=== PATIENT | male | born 1945 | race Caucasian/White ===

== ENCOUNTER 2019-03-14 15:20 | Inpatient (IN) | payer MEDICARE, OTHER ==
[2019-03-14 16:47] LABS: Hematocrit 34 % (42-52); Hemoglobin 10.3 g/dL (14.0-18.0); Mean Corpuscular HGB Conc 31 g/dL (31-36); Mean Corpuscular Hemoglobin 23 pg (27-31); Mean Corpuscular Volume 74 fL (80-94); Mean Platelet Volume 7.7 fL (7.4-10.4); Platelet Count 351 10^3/uL (150-450); Red Blood Count 4.55 10^6 /uL (4.18-5.48); Red Cell Distribution Width 18 % (10.5-15); White Blood Count 9.5 10^3/uL (3.5-10.8)
--- NOTE | 2019-03-14 16:51 | ED ---
Respiratory - HPI Summary HPI Summary: This patient is a 73 year old M presenting to [facility] with a chief complaint of SOB since 2 months ago. The SOB is worse when lying down, such that the pt has to sleep on his side. Symptoms also aggravated by exertion. Per the triage note , he was seen by [facility] today and told that he had fluid in his lungs and sent here. Patient reports swelling in LE bilaterally. Patient denies coughing, CP, and chest tightness. He has never used water pills before and is not on oxygen at home. PCP is Dr. Orosco. - History of Current Complaint Chief Complaint: EDShortnessOfBreath Stated Complaint: FLUID IN HIS LUNGS PER PT Time Seen by Provider: 03/14/19 16:18 Hx Obtained From: Patient Onset/Duration: Lasting Weeks, Still Present Pain Intensity: 0 Character: Dyspnea at Rest, Dyspnea on Exertion, Orthopnea Aggravating Factor(s): Exertion Associated Signs and Symptoms: SOB, Chest Pain - Denies, Chest Pain with Cough - Denies, Chest Pain Unrelated to Cough - Denies, Edema - LE bilat, Dyspnea - Allergy/Home Medications Allergies/Adverse Reactions: Allergies Allergy/AdvReac Type Severity Reaction Status Date / Time No Known Allergies Allergy Verified 03/08/16 16:58 Home Medications: Home Medications Cholecalciferol (Vitamin D3) [Vitamin D3] 1,000 unit PO DAILY 03/14/19 [History Confirmed 03/14/19] Digoxin TAB* [Lanoxin TAB*] 0.125 mg PO DAILY 03/14/19 [History Confirmed ] PMH/Surg Hx/FS Hx/Imm Hx Endocrine/Hematology History: Denies: Hx Diabetes Cardiovascular History: Reports: Hx Atrial Fibrillation, Hx Hypertension Denies: Hx Cardiac Arrest - Surgical History Surgery Procedure, Year, and Place: APPENDECTOMY CHILD Infectious Disease History: No Infectious Disease History: Denies: Traveled Outside the [place] in Last 30 Days - Family History Known Family History: Positive: Cardiac Disease, Diabetes - Social History Alcohol Use: None Substance Use Type: Reports: Marijuana Smoking Status (MU): Former Smoker Review of Systems Negative: Fever, Chills Negative: Erythema Negative: Sore Throat Negative: Chest Pain Positive: Shortness Of Breath. Negative: Cough Negative: Abdominal Pain, Vomiting, Nausea Negative: dysuria, hematuria Positive: Edema - LE bilaterally. Negative: Myalgia Negative: Rash Neurological: Other - Denies dizziness All Other Systems Reviewed And Are Negative: Yes Physical Exam - Summary Physical Exam Summary: Constitutional: Well-developed, Well-nourished, Alert. (-) Distressed Skin: Warm, Dry HENT: Normocephalic; Atraumatic Eyes: Conjunctiva normal Neck: Musculoskeletal ROM normal neck. (-) JVD, (-) Stridor, (-) Tracheal deviation Cardio: Rhythm regular, rate normal, Heart sounds normal; Intact distal pulses; The pedal pulses are 2+ and symmetric. Radial pulses are 2+ and symmetric. (-) Murmur Pulmonary/Chest wall: Basilar crackling in lungs on right side. (-) Respiratory distress, (-) Wheezes, (-) Rales Abd: Soft, (-) tenderness, (-) Distension, (-) Guarding, (-) Rebound Musculoskeletal: Bilaterally 1+ pitting edema to LE with weeping on the right side Lymph: (-) Cervical adenopathy Neuro: Alert, Oriented x3 Psych: Mood and affect Normal Triage Information Reviewed: Yes Vital Signs On Initial Exam: Initial Vitals Temp Pulse Resp BP Pulse Ox 98.1 F 64 20 102/71 92 03/14/19 15:32 03/14/19 15:32 03/14/19 15:32 03/14/19 15:32 03/14/19 15:32 Vital Signs Reviewed: Yes Diagnostics - Vital Signs Vital Signs Temp Pulse Resp BP Pulse Ox 03/14/19 16:01 73 15 87 03/14/19 15:32 98.1 F 64 20 102/71 92 - Laboratory Result Diagrams: 03/14/19 16:38 03/14/19 16:38 Lab Statement: Any lab studies that have been ordered have been reviewed, and results considered in the medical decision making process. - Radiology Chest X-Ray Radiology Interpretation Completed By: Radiologist Summary of Radiographic Findings: 16:52 - CARDIOMEGALY WITH RIGHT PLEURAL EFFUSION. RIGHT BASILAR ATELECTASIS IS NOTED. ED Physician has reviewed this imaging report. - EKG 16:37 Cardiac Rate: NL - 69 BPM EKG Rhythm: Sinus Rhythm Summary of EKG Findings: No STEMI Disposition - Diagnoses Provider Diagnoses: CHF exacerbation - Physician Notifications Discussed Care Of Patient With: Edda Soliz - Hospitalist Time Discussed With Above Provider: 18:00 Instructed by Provider To: Admit As Inpatient Discharge - Sign-Out/Discharge Documenting (check all that apply): Patient Departure - Admit Patient Received Moderate/Deep Sedation with Procedure: No - Discharge Plan Condition: Stable Disposition: ADMITTED TO [facility] Referrals: Randy Orosco DO [Primary Care Provider] - - Attestation Statements Document Initiated by Scribe: Yes Documenting Scribe: John Miles Provider For Whom Scribe is Documenting (Include Credential): Layton Gay MD Scribe Attestation: John Garcia, scribed for Layton Gay MD on 03/14/19 at 1853. Status of Scribe Document: Ready
[2019-03-14] MEDS ORDERED: Nitro 2% OINT* (Nitroglycerin) 1 INCH/PAK PAK TOPICAL ONE (16:56)
[2019-03-14] MEDS ORDERED: Furosemide IV* 10 MG/ML VIAL (40 MG) IV SLOW PU ONE (16:56)
[2019-03-14 16:57] LABS: Activated Partial Thrombo Time 45.6 seconds (26.0-36.3); INR 1.53 (0.82-1.09)
[2019-03-14 17:04] LABS: ALT 16 U/L (7-52); AST 22 U/L (13-39); Albumin 3.8 g/dL (3.2-5.2); Albumin/Globulin Ratio 1.1 (1-3); Alkaline Phosphatase 130 U/L (34-104); Anion Gap 6 mmol/L (2-11); BUN/Creatinine Ratio 24.2 (8-20); Blood Urea Nitrogen 32 mg/dL (6-24); CO2 Carbon Dioxide 31 mmol/L (22-32); Calcium 9.5 mg/dL (8.6-10.3); Chloride 104 mmol/L (101-111); EGFR African American 64.2 (>60); Globulin 3.5 g/dL (2-4); Glucose 128 mg/dL (70-100); Potassium 4.6 mmol/L (3.5-5.0); Sodium 141 mmol/L (135-145); Total Protein 7.3 g/dL (6.4-8.9)
[2019-03-14 17:07] LABS: Troponin I 0.04 ng/mL (<0.04)
[2019-03-14 17:08] LABS: ABS Basophils 0.1 10^3/ul (0-0.2); ABS Eosinophils 0.1 10^3/ul (0-0.6); ABS Lymphocytes 1.1 10^3/ul (1.0-4.8); ABS Neutrophils 7.2 10^3/ul (1.5-7.7); Eosinophil % 0.9 %; Lymphocyte % 11.9 %
[2019-03-14] MEDS ORDERED: Acetaminophen TAB* 325 MG PO PRN (19:09)
[2019-03-14] MEDS: CMCS:Dabigatran CAP(NF) 150 MG CAP PO SCH (22:14)
--- NOTE | 2019-03-15 03:22 | HP ---
CC: Dr. Orosco * HISTORY AND PHYSICAL: DATE OF ADMISSION: 03/14/19 PROVIDER: Jessica Plata NP. PRIMARY CARE PROVIDER: Dr. Orosco. ATTENDING PHYSICIAN WHILE IN THE HOSPITAL: Dr. Milagros Goss * (dictated by Jessica Plata NP). CHIEF COMPLAINT: Shortness of breath. HISTORY OF PRESENT ILLNESS: Mr. Valerio is a 73-year-old male with a past medical history significant for atrial fibrillation, hypertension, and hyperlipidemia who presented to the emergency room with complaints of shortness of breath. The patient reports that he has had progressively worsening shortness of breath for the past 5 months. He does report that this week his shortness of breath has been at its worst. The patient denies any significant weight gain. He does report some lower extremity edema with weeping from his lower extremities. The patient does have chronic ulcerations and is followed by [facility] for treatment of the ulcers on his lower legs, which he states have been improving. He does have some mild erythema to bilateral lower extremities, but this is not warm or painful to touch and the patient is afebrile. The patient reports that he has been able to lie down and sleep on his side, but is unable to sleep on his back due to increased shortness of breath. He does report that over the past week, he has been sleeping sitting up due to his shortness of breath. Due to the progressive shortness of breath, the patient presented to the emergency room for further evaluation. The patient was seen by [facility] today and told to come to the emergency room for further evaluation. While in the emergency room, the patient had routine lab work drawn. He was found to have a troponin of 0.04, elevated BUN and creatinine of 32 and 1.32; which is above his baseline, lactic acid of 2.2, and a BNP of 319. He had a chest x-ray, which showed cardiomegaly with right pleural effusion, right basilar atelectasis. Due to the concern of congestive heart failure, we were asked to see and evaluate the patient for admission. PAST MEDICAL HISTORY: 1. Atrial fibrillation. 2. Hypertension. 3. Hyperlipidemia. PAST SURGICAL HISTORY: History of appendectomy. MEDICATIONS: Home medications include: 1. Pradaxa 150 mg p.o. b.i.d. 2. Metoprolol 200 mg p.o. daily. 3. Lisinopril 10 mg p.o. daily. 4. Simvastatin 40 mg p.o. daily. 5. Digoxin 0.125 mg p.o. daily. 6. Vitamin D 1000 units p.o. daily. ALLERGIES: No known drug allergies. SOCIAL HISTORY: The patient reports that he quit smoking in 1984. Prior to that, he smoked a pack a day for approximately 10 years. He does report rare alcohol use. He does report that he smokes marijuana 2 times a week. He is single. He lives alone. His son, Francesco, is his surrogate decision maker in the event he is unable to make his own decisions. He is a full code. REVIEW OF SYSTEMS: He denies any fever or unintended weight loss. He denies any chest pain. He does report edema. He denies any cough or hemoptysis. He does report shortness of breath worse with exertion and lying flat. He denies nausea, vomiting, diarrhea, abdominal pain, gross hematuria, dysuria, focal weakness, or sensory loss. He denies any visual complaints. He denies any dysphagia, arthralgias, or myalgias. He does report ulcers to bilateral lower extremities; he is followed by [facility] for that. He does report that they have improved. PHYSICAL EXAMINATION GENERAL: At this time, Mr. Valerio is a 73-year-old male. He is alert and oriented, sitting on the stretcher in the emergency room. He does not appear to be in any acute distress. VITAL SIGNS: Blood pressure is 104/60, heart rate is 73, respirations are 18, O2 saturation is 96%, temperature 98.1. HEENT: Head is atraumatic, normocephalic. Eyes: EOMs are intact. Sclerae anicteric and not pale. Oral mucosa appeared to be moist. NECK: Supple. LUNGS: Diminished bilaterally. There are no wheezes or rales. CARDIAC: S1, S2. Irregular rate and rhythm. No murmurs, rubs, or gallops. ABDOMEN: Obese, soft, nontender. Bowel sounds are present x4. EXTREMITIES: He can move all 4 extremities. Pedal pulses are +1. His bilateral lower extremities do have mild erythema with ulcerations noted to both lower extremities. They are not hot to touch. NEUROLOGIC: He is awake, alert, oriented x3. His speech is clear. Thought process is intact. There are no gross focal deficits. LABORATORY DATA AND DIAGNOSTIC STUDIES: WBCs are 9.5, RBCs 4.55, hemoglobin 10.3, hematocrit of 34, platelet count is 351. INR is 1.53, aPTT was 45.6. Sodium 141, potassium 4.6, chloride 104, carbon dioxide 31, anion gap 6, BUN was 32, creatinine 1.32, glucose was 128, lactic acid was 2.2, calcium 9.5. ASTs were 22, ALTs were 16, alkaline phosphatase was 130. Troponin was 0.04. BNP was 319. Chest x-ray: Cardiomegaly with right pleural effusion, right basilar atelectasis is noted. He had an electrocardiogram that showed atrial fibrillation at a rate of 69. ASSESSMENT AND PLAN: Mr. Valerio is a 73-year-old male with a past medical history significant for atrial fibrillation; on Pradaxa, hypertension, hyperlipidemia who presented to the emergency room with progressively shortness of breath x5 months. He will be admitted inpatient for: 1. Shortness of breath. I suspect his shortness of breath is related to diastolic congestive heart failure. The patient was given 40 mg of Lasix in the emergency room. I will repeat Lasix 40 mg IV in the a.m. We will monitor him on telemetry. I will get a transthoracic echocardiogram. The patient did have an EKG in the emergency room. It shows atrial fibrillation, but no acute ST elevations. The patient does have an elevated troponin. I suspect it is related to demand ischemia from his congestive heart failure. The patient will be placed on strict Is and Os and daily weights. 2. Atrial fibrillation. The patient will continue on digoxin 0.125 mg p.o. daily, metoprolol 200 mg p.o. daily, and Pradaxa 150 mg p.o. b.i.d. 3. Hyperlipidemia. He will continue on atorvastatin 20 mg p.o. daily. 4. Hypertension. He will continue his metoprolol as previously prescribed. I will hold his lisinopril as the patient will be receiving digoxin and has a soft blood pressure with systolic blood pressure in the 100s. 5. Elevated troponin. I suspect his elevated troponin is related to demand ischemia from his congestive heart failure. I will continue to trend his troponins and get a transthoracic echocardiogram. Should his troponins elevate , we can consider consultation to cardiology. 6. FEN. The patient can have a heart-healthy, decaf-okay diet. 7. Code status. He is a full code. 8. DVT prophylaxis. The patient is on Pradaxa. TIME SPENT: Time spent on this admission was 60 minutes, greater than half that time was spent at the bedside, reviewing the events leading thus far to his hospitalization, performing my physical exam, and reviewing my plan of care. I have discussed this with my attending, Dr. Milagros Goss; she is in agreement with my plan. JESSICA PLATA, SOUND RECORDIST [id number]/CPS #: [id number] [facility]
[2019-03-15 04:42] LABS: Hematocrit 35 % (42-52); Hemoglobin 10.6 g/dL (14.0-18.0); Mean Corpuscular HGB Conc 30 g/dL (31-36); Mean Corpuscular Hemoglobin 22 pg (27-31); Mean Corpuscular Volume 74 fL (80-94); Mean Platelet Volume 7.7 fL (7.4-10.4); Platelet Count 353 10^3/uL (150-450); Red Blood Count 4.77 10^6 /uL (4.18-5.48); Red Cell Distribution Width 18 % (10.5-15); White Blood Count 10.6 10^3/uL (3.5-10.8)
[2019-03-15 04:44] LABS: ABS Basophils 0.1 10^3/ul (0-0.2); ABS Eosinophils 0.2 10^3/ul (0-0.6); ABS Lymphocytes 1.3 10^3/ul (1.0-4.8); Eosinophil % 1.5 %; Lymphocyte % 12.3 %
[2019-03-15 04:46] LABS: Anion Gap 3 mmol/L (2-11); BUN/Creatinine Ratio 25.2 (8-20); Blood Urea Nitrogen 33 mg/dL (6-24); CO2 Carbon Dioxide 31 mmol/L (22-32); Calcium 9.6 mg/dL (8.6-10.3); Chloride 105 mmol/L (101-111); EGFR African American 64.7 (>60); EGFR Non-African American 53.5 (>60); Glucose 102 mg/dL (70-100); Potassium 4.9 mmol/L (3.5-5.0); Sodium 139 mmol/L (135-145)
[2019-03-15] MEDS ORDERED: Furosemide IV* 10 MG/ML VIAL (40 MG) IV ONE (08:00)
[2019-03-15] MEDS: Atorvastatin* 20 MG TAB PO SCH (08:08)
[2019-03-15] MEDS: CMCS:Dabigatran CAP(NF) 150 MG CAP PO SCH ×2 (08:09→21:23)
[2019-03-15] MEDS ORDERED: Metoprolol Succinate XL TAB* 200 MG TAB.XL PO SCH (09:00)
[2019-03-15] MEDS ORDERED: Aspirin 81 mg CHEW TAB* 81 MG TAB.CHEW PO ONE (12:18)
[2019-03-15] MEDS: CMC:Midodrine (NF) 5 MG TAB PO SCH ×2 (15:05→21:22)
--- NOTE | 2019-03-15 15:59 | PN ---
Subjective Date of Service: 03/15/19 Interval History: Pt seen and examined. Meds and labs reviewed. CC: N/A ROS: Denied CARVALHO/dizziness, F/C, N/V, CP, SOB, increased cough, sputum production , abd pain, diarrhea, constipation, dysuria, myalgias, arthralgias, throat pain , and new skin lesions. The rest of the 14 point ROS are unremarkable. PHYSICAL EXAM: GEN APPEARANCE: Awake, not in acute distress HEENT: NC/AT, PERRLA, moist oral mucosa, (-) throat erythema NECK: Soft, supple, (-) cervical LAD, (-)JVD HEART: S1S2 3/6 murmur, RRR, No RG CHEST: CTA, BL, GAE, No W/R/R ABD: Soft, ND/NT, NABS 4x Q EXT: No C/C/BLLE edema (+)1 SKIN: Warm to touch PSYCH: No active psychosis, hallucinations, depression, SI/HI Objective Active Medications: Acetaminophen (Tylenol Tab*) 650 mg PO Q4H PRN PRN Reason: FEVER/PAIN Atorvastatin Calcium (Lipitor*) 20 mg PO DAILY [facility] Last Admin: 03/15/19 08:08 Dose: 20 mg Dabigatran (Pradaxa Cap(Nf)) 150 mg PO BID [facility] Last Admin: 03/15/19 08:09 Dose: 150 mg Digoxin (Lanoxin Tab*) 0.125 mg PO DAILY@1700 [place] Metoprolol Succinate (Toprol Xl Tab*) 150 mg PO DAILY [facility] Midodrine (Midodrine (Nf)) 5 mg PO TID [facility]; Protocol Last Admin: 03/15/19 15:05 Dose: 5 mg Vital Signs - 8 hr 03/15/19 03/15/19 03/15/19 11:07 14:35 14:44 Temperature 97.9 F Pulse Rate 69 Respiratory 20 Rate Blood Pressure 93/60 93/43 (mmHg) O2 Sat by Pulse 98 82 Oximetry 03/15/19 15:14 Temperature 98.2 F Pulse Rate 70 Respiratory 20 Rate Blood Pressure 95/46 (mmHg) O2 Sat by Pulse 97 Oximetry Oxygen Devices in Use Now: Nasal Cannula Result Diagrams: 03/15/19 04:20 03/15/19 04:20 Assess/Plan/Problems-Billing Assessment: - Patient Problems (1) SOB (shortness of breath) Current Visit: Yes Status: Acute Code(s): R06.02 - SHORTNESS OF BREATH SNOMED Code(s): 290976490 Comment: -Likely due to CHF exacerbation -Awaiting 2Decho -Given mild hypotension, will place pt on low dose Midodrine and hold off on further diuresis until reassessed in AM (2) Hypotension Current Visit: Yes Status: Acute Comment: -Likely due to overdiuresis -Please see above discussion (3) Troponin level elevated Current Visit: Yes Status: Acute Code(s): R74.8 - ABNORMAL LEVELS OF OTHER SERUM ENZYMES SNOMED Code(s): 078218713 Comment: #Mildly elevated troponins: -Likely due to demand in the setting of renal failure -Repeat troponin was found to be normal -Pt otherwise asymptomatic and will continue watchful waiting -Will await 2Decho in AM (4) Renal insufficiency Current Visit: Yes Status: Acute Code(s): N28.9 - DISORDER OF KIDNEY AND URETER, UNSPECIFIED SNOMED Code(s): 493623455 Comment: -Please see above discussion -Unclear baseline renal function in [id number] but stable -Will continue watchful waiting (5) A-fib Current Visit: Yes Status: Acute Code(s): I48.91 - UNSPECIFIED ATRIAL FIBRILLATION SNOMED Code(s): 28327962 Comment: -Lowered Metoprolol with appropriate holding orders for tomorrow -Held further diuresis -Otherwise rate controlled -Continue Pradaxa (6) DVT prophylaxis Current Visit: Yes Status: Acute Code(s): Z29.9 - ENCOUNTER FOR PROPHYLACTIC MEASURES, UNSPECIFIED SNOMED Code(s): 127223901 Comment: -Continue Pradaxa Status and Disposition: -For PT eval
[2019-03-15] MEDS: Digoxin TAB* 0.125 MG PO SCH (16:04)
[2019-03-15 16:40] LABS: Troponin I 0.03 ng/mL (<0.04)
[2019-03-15 22:58] LABS: Troponin I 0.03 ng/mL (<0.04)
[2019-03-15 22:59] LABS: CKMB ng/mL 2.5 ng/mL (0.6-6.3)
[2019-03-16 06:32] LABS: ABS Basophils 0.1 10^3/ul (0-0.2); ABS Eosinophils 0.2 10^3/ul (0-0.6); ABS Lymphocytes 1.4 10^3/ul (1.0-4.8); ABS Monocytes 1.2 10^3/ul (0-0.8); ABS Neutrophils 7.6 10^3/ul (1.5-7.7); Eosinophil % 1.7 %; Hematocrit 36 % (42-52); Hemoglobin 10.6 g/dL (14.0-18.0); Lymphocyte % 13.6 %; Mean Corpuscular HGB Conc 29 g/dL (31-36); Mean Corpuscular Hemoglobin 22 pg (27-31); Mean Corpuscular Volume 76 fL (80-94); Mean Platelet Volume 7.6 fL (7.4-10.4); Platelet Count 362 10^3/uL (150-450); Red Blood Count 4.76 10^6 /uL (4.18-5.48); Red Cell Distribution Width 19 % (10.5-15); White Blood Count 10.4 10^3/uL (3.5-10.8)
[2019-03-16 06:49] LABS: Digoxin 0.7 ng/ml (0.8-2.0)
[2019-03-16 06:55] LABS: Albumin/Globulin Ratio 1.1 (1-3); BUN/Creatinine Ratio 26.1 (8-20); Calcium 9.5 mg/dL (8.6-10.3); EGFR African American 72.3 (>60); EGFR Non-African American 59.8 (>60); Globulin 3.7 g/dL (2-4); Magnesium 2.3 mg/dL (1.9-2.7); Phosphorus 3.6 mg/dL (2.5-5.0); Total Bilirubin 0.8 mg/dL (0.2-1.0); Total Protein 7.7 g/dL (6.4-8.9)
[2019-03-16] MEDS: Metoprolol Succinate XL TAB* 100 MG PO SCH (07:50)
[2019-03-16] MEDS: Atorvastatin* 20 MG TAB PO SCH (07:50)
[2019-03-16] MEDS: CMC:Midodrine (NF) 5 MG TAB PO SCH ×3 (07:50→21:39)
[2019-03-16] MEDS: CMCS:Dabigatran CAP(NF) 150 MG CAP PO SCH ×2 (08:16→21:19)
[2019-03-16] MEDS ORDERED: Furosemide IV* 10 MG/ML VIAL (40 MG) IV SCH (09:00)
[2019-03-16] MEDS ORDERED: Torsemide TAB* 20 MG PO ONE (13:38)
[2019-03-16] MEDS ORDERED: Torsemide TAB 10 MG PO ONE (14:00)
--- NOTE | 2019-03-16 14:04 | PN ---
Subjective Date of Service: 03/16/19 Interval History: Pt seen and examined. Meds and labs reviewed. Had ambulatory sats at today and was found to have desaturated in low 80s. Please see discussion below. CC: N/A ROS: Denied CARVALHO/dizziness, F/C, N/V, CP, increased cough, sputum production, abd pain, diarrhea, constipation, dysuria, myalgias, arthralgias, throat pain, and new skin lesions. The rest of the 14 point ROS are unremarkable. PHYSICAL EXAM: GEN APPEARANCE: Awake, not in acute distress HEENT: NC/AT, PERRLA, moist oral mucosa, (-) throat erythema NECK: Soft, supple, (-) cervical LAD, (-)JVD HEART: S1S2 3/6 murmur, RRR, No RG CHEST: CTA, BL, GAE, No W/R/R ABD: Soft, ND/NT, NABS 4x Q EXT: No C/C/BLLE edema (+)1 SKIN: Warm to touch PSYCH: No active psychosis, hallucinations, depression, SI/HI Objective Active Medications: Acetaminophen (Tylenol Tab*) 650 mg PO Q4H PRN PRN Reason: FEVER/PAIN Atorvastatin Calcium (Lipitor*) 20 mg PO DAILY [facility] Last Admin: 03/16/19 07:50 Dose: 20 mg Dabigatran (Pradaxa Cap(Nf)) 150 mg PO BID [facility] Last Admin: 03/16/19 08:16 Dose: 150 mg Digoxin (Lanoxin Tab*) 0.125 mg PO DAILY@1700 [facility] Last Admin: 03/15/19 16:04 Dose: 0.125 mg Metoprolol Succinate (Toprol Xl Tab*) 150 mg PO DAILY [facility] Last Admin: 03/16/19 07:50 Dose: 150 mg Midodrine (Midodrine (Nf)) 5 mg PO TID [facility]; Protocol Last Admin: 03/16/19 13:22 Dose: 5 mg Vital Signs - 8 hr 03/16/19 03/16/19 03/16/19 07:00 07:17 07:28 Temperature 98.2 F Pulse Rate 80 Respiratory 16 18 Rate Blood Pressure 104/77 (mmHg) O2 Sat by Pulse 82 99 Oximetry 03/16/19 03/16/19 11:21 13:39 Temperature 97.8 F Pulse Rate 65 Respiratory 20 Rate Blood Pressure 128/72 (mmHg) O2 Sat by Pulse 96 82 Oximetry Oxygen Devices in Use Now: Nasal Cannula Result Diagrams: 03/16/19 05:50 03/16/19 05:50 Microbiology and Other Data: Microbiology 03/14/19 16:38 Aerobic Blood Culture - Preliminary Blood Venous No Growth Day 1 Anaerobic Blood Culture - Preliminary No Growth Day 1 03/14/19 16:38 Aerobic Blood Culture - Preliminary Blood Venous No Growth Day 1 Anaerobic Blood Culture - Preliminary No Growth Day 1 Assess/Plan/Problems-Billing Assessment: - Patient Problems (1) SOB (shortness of breath) Current Visit: Yes Status: Acute Code(s): R06.02 - SHORTNESS OF BREATH SNOMED Code(s): 505841359 Comment: -Likely due to CHF exacerbation -Awaiting 2Decho -Given mild hypotension, pt placed on low dose Midodrine yesterday ; pts blood pressure improved with above but still desaturates on ambulation; CXR done this AM suggests possible R. basilar PNA -Will place pt on low dose Torsemide with midodrine for BP support (2) Hypotension Current Visit: Yes Status: Acute Comment: -Improved -Continue Midodrine for now -Likely due to overdiuresis; possibility of early PNA given above CXR; will hold off on antibiotics for now given no leukocytosis, fever, siginificant tachycardia and tachypnea from baseline -Blood Cx (-) x 1 day -Please see above discussion (3) Troponin level elevated Current Visit: Yes Status: Acute Code(s): R74.8 - ABNORMAL LEVELS OF OTHER SERUM ENZYMES SNOMED Code(s): 162927629 Comment: #Mildly elevated troponins: -Likely due to demand in the setting of renal failure -Repeat troponin was found to be normal -Pt otherwise asymptomatic and will continue watchful waiting -Will await 2Decho (4) Renal insufficiency Current Visit: Yes Status: Acute Code(s): N28.9 - DISORDER OF KIDNEY AND URETER, UNSPECIFIED SNOMED Code(s): 514952071 Comment: -Please see above discussion -Unclear baseline renal function in 4812-3160 but appears stable with gradual improvement (5) A-fib Current Visit: Yes Status: Acute Code(s): I48.91 - UNSPECIFIED ATRIAL FIBRILLATION SNOMED Code(s): 16223189 Comment: -Lowered Metoprolol with appropriate holding orders -Otherwise rate controlled -Continue Pradaxa (6) DVT prophylaxis Current Visit: Yes Status: Acute Code(s): Z29.9 - ENCOUNTER FOR PROPHYLACTIC MEASURES, UNSPECIFIED SNOMED Code(s): 894874095 Comment: -Continue Pradaxa Status and Disposition: -For O/N oximetry study -Awaiting result of 2D echo -For D/C home when ready; likely in AM
[2019-03-16 14:12] LABS: C Reactive Protein 6.93 mg/L (<8.01)
[2019-03-16] MEDS ORDERED: Perflutren Lipid Microsphere* 3 ML VIAL ONE (14:31)
[2019-03-16 15:05] LABS: Erythrocyte Sed Rate 9 mm/Hr (0-19)
[2019-03-16] MEDS: Digoxin TAB* 0.125 MG PO SCH (15:56)
--- NOTE | 2019-03-16 17:01 | ECHO ---
*[facility]* [place] [address] Fax #: [phone] Transthoracic Echocardiogram Patient: Iman Height: 69 in / Naif 175.3 cm : 1945 Weight: 259.5 lb / Study Date: 03/16/2019 117.9 kg Age: 73 BP: 105 / 57 Gender: M BMI/BSA: 38.4 kg/m^2 HR: 90 bpm / 2.31 m^2 *[employer] Supervisor: * Annemarie Steinberg RDCS RN *Referring Physician: * Jesscia Plata *Reading Physician: * Marco Daly MD Indications: SOB. History: PMH: Atrial fibrillation. Risk factors: Former tobacco use. Hypertension. Obese. Dyslipidemia. Conclusions Summary: 1. Left ventricle: The cavity size is normal. Wall thickness is mildly increased. The estimated ejection fraction is 55-60%. There is mild-moderate septal flattening consistent wt right ventricle pressure and/or volume overload 2. Right ventricle: The cavity size is moderately dilated. Systolic function is moderately reduced. The estimated peak pressure is 67 mm Hg. There is severe pulmonary hypertension. 3. Left atrium: The atrium is moderately to severely dilated. 4. Right atrium: The atrium is moderately to severely dilated. 5. Aortic valve: Not well visualized. The doppler findings are consistent with mild stenosis. 6. Tricuspid valve: There is mild-moderate regurgitation. 7. Patient appears to be in atrial fibrillation at time of examination. Recommendations: None prior for comparison at time of interpretation. Study data: Transthoracic echocardiogram. Procedure: Transthoracic echocardiography was performed. Image quality was fair. The study was technically limited due to body habitus and smoking history. A total of 2 ml of Definity was given IV by Indiana Steinberg RN, RDCS. Complete 2D, spectral Doppler, and color flow Doppler. Patient status: Inpatient. Patient room number: 444-.2. Rhythm: Atrial fibrillation. Findings Left ventricle: The cavity size is normal. Wall thickness is mildly increased. The estimated ejection fraction is 55-60%. There is mild-moderate septal flattening consistent [facility] right ventricle pressure and/or volume overload There are no regional wall motion abnormalities. There is septal flattening. Left ventricular diastolic function parameters are indeterminate. Right ventricle: The cavity size is moderately dilated. Systolic function is moderately reduced. The estimated peak pressure is 67 mm Hg. There is severe pulmonary hypertension. Left atrium: The atrium is moderately to severely dilated. Right atrium: The atrium is moderately to severely dilated. Mitral valve: The leaflets are mildly thickened. There is no evidence of stenosis. There is mild regurgitation. Aortic valve: Not well visualized. The doppler findings are consistent with mild stenosis. There is mild regurgitation. Tricuspid valve: The valve is structurally normal. There is no evidence of stenosis. There is mild-moderate regurgitation. Pulmonic valve: Not well visualized. Aorta: Aortic root: The aortic root is poorly visualized. Ascending aorta: The ascending aorta is not dilated. Aortic arch: The aortic arch is not visualized. Pericardium: There is no pericardial effusion. Pulmonary arteries: Not well visualized. Systemic veins: Inferior vena cava: The vessel is dilated. The respirophasic diameter changes are blunted (< 50%). Measurements Left ventricle Value Ref Right atrium Value Ref SHAYE, LAX 4.3 cm 4.2 - ML dim, ES, A4C (H) 5.1 cm 2.6 - 4.4 5.8 SI dim, ES, A4C (H) 6.9 cm 3.4 - 5.3 PW, ED, LAX (H) 1.1 cm 0.6 - 1.0 Aortic valve Value Ref PW, ED (H) 1.1 cm 0.6 - Marcia diam, ED 0.1 cm --------- 1.0 Marcia diam/bsa, ED 0.1 cm/m^2 --------- IVS/PW, ED 1.06 -------- Peak v, S 2.5 m/sec --------- PW/ID, ED 0.24 -------- VTI, S 48.7 cm --------- E', lat marcia, TDI 10.7 cm/sec >=10.0 Mean grad, S 13.0 mm Hg - -------- E/e', lat marcia, TDI 12 -------- Peak grad, S 25.0 mm Hg ---- ----- E', med marcia, TDI 11.1 cm/sec >=7.0 LVOT/AV, VTI ratio 0.37 - -------- E/e', med marcia, TDI 11 -------- LALA, VTI 1.51 cm^2 ---- ----- E', avg, TDI 10.9 cm/sec -------- LALA, Vmax 1.66 cm^2 ---- ----- E/e', avg, TDI 11 <=14 Mitral valve Value Ref LVOT Value Ref Peak E 1.25 m/sec --------- Diam, S 2.29 cm -------- Decel time 201 ms --------- Area 4.1 cm^2 -------- Peak grad, D 6.3 mm Hg --------- Peak pallavi, S 1.01 m/sec -------- VTI, S 17.9 cm -------- Pulmonic valve Value Ref Mean grad, S 2 mm Hg -------- Peak v, S 0.62 m/sec --------- SV 51 ml -------- Peak grad, S 2.0 mm Hg --------- Ventricular septum Value Ref Tricuspid valve Value Ref IVS, ED (H) 1.1 cm 0.6 - TR peak v (H) 3.6 m/sec <=2.8 1.0 Peak RV-RA grad, S 52 mm Hg --------- Right ventricle Value Ref Ascending aorta Value Ref SHAYE, LAX 4.1 cm -------- AAo AP diam, S 3.0 cm --------- SHAYE minor ax, A4C (H) 4.5 cm 1.9 - mid 3.5 Inferior vena cava Value Ref Diam 2.4 cm --------- Left atrium Value Ref ML dim, A4C 5.4 cm -------- SI dim, A4C 6.7 cm -------- Vol/bsa, ES, 1-p (H) 49 ml/m^2 12 - 37 A4C Vol/bsa, ES, A/L (H) 48 ml/m^2 16 - 34 Legend: (L) and (H) jay values outside specified reference range. Prepared and electronically signed by Marco Daly MD 03/16/2019 17:00
[2019-03-16] MEDS ORDERED: predniSONE TAB* 20 MG PO ONE (17:46)
[2019-03-16] MEDS: Albuterol/Ipratropium NEB.SOL* Albuterol 2.5 MG/Ipratropium 0.5 MG 3 ML INH SCH (19:19)
[2019-03-17] MEDS: Albuterol/Ipratropium NEB.SOL* Albuterol 2.5 MG/Ipratropium 0.5 MG 3 ML INH SCH ×3 (01:04→13:41)
[2019-03-17 06:46] LABS: ABS Lymphocytes 0.7 10^3/ul (1.0-4.8); ABS Monocytes 0.4 10^3/ul (0-0.8); ABS Neutrophils 7.3 10^3/ul (1.5-7.7); Hematocrit 34 % (42-52); Hemoglobin 10.1 g/dL (14.0-18.0); Lymphocyte % 8.6 %; Mean Corpuscular HGB Conc 30 g/dL (31-36); Mean Corpuscular Hemoglobin 22 pg (27-31); Mean Corpuscular Volume 75 fL (80-94); Mean Platelet Volume 7.6 fL (7.4-10.4); Platelet Count 324 10^3/uL (150-450); Red Blood Count 4.55 10^6 /uL (4.18-5.48); Red Cell Distribution Width 18 % (10.5-15); White Blood Count 8.4 10^3/uL (3.5-10.8)
[2019-03-17 07:05] LABS: BUN/Creatinine Ratio 26.5 (8-20); Blood Urea Nitrogen 30 mg/dL (6-24); CO2 Carbon Dioxide 32 mmol/L (22-32); Calcium 9.4 mg/dL (8.6-10.3); Chloride 101 mmol/L (101-111); EGFR African American 76.5 (>60); EGFR Non-African American 63.3 (>60); Glucose 160 mg/dL (70-100); Sodium 140 mmol/L (135-145)
[2019-03-17 07:08] LABS: Anion Gap 7 mmol/L (2-11); Potassium 5.1 mmol/L (3.5-5.0)
[2019-03-17] MEDS: Atorvastatin* 20 MG TAB PO SCH (08:22)
[2019-03-17] MEDS: CMCS:Dabigatran CAP(NF) 150 MG CAP PO SCH (08:22)
[2019-03-17] MEDS: CMC:Midodrine (NF) 5 MG TAB PO SCH (08:22)
[2019-03-17] MEDS: Metoprolol Succinate XL TAB* 100 MG PO SCH (08:23)
[2019-03-17] MEDS ORDERED: predniSONE TAB* 10 MG PO SCH (09:00)
[2019-03-17] MEDS ORDERED: Furosemide IV* 10 MG/ML 10 ML VIAL (100 MG) IV ONE (09:27)
[2019-03-17 12:20] VITALS: BP 121/64
--- NOTE | 2019-03-17 16:15 | DS ---
CC: Dr. Milagros Goss; Dr. Layton Gay; Dr. Randy Orosco * DISCHARGE SUMMARY: DATE OF ADMISSION: DATE OF DISCHARGE: 03/17/19 DISCHARGE CONDITION: Stable. DISCHARGE DISPOSITION: Home. DISCHARGE DIAGNOSES: 1. Congestive heart failure exacerbation, improved. 2. Obesity, likely with obstructive sleep apnea due to hypoxia despite improvement of above requiring 4 L of O2. 3. Mildly elevated troponin, likely due to demand due to congestive heart failure exacerbation. 4. Acute kidney injury, resolved. 5. Atrial fibrillation, history of. DISCHARGE MEDICATIONS: As follows: 1. Dabigatran 150 mg p.o. b.i.d. 2. Digoxin 0.125 mg p.o. daily. 3. Metoprolol succinate 100 mg p.o. daily. 4. Prednisone rapid taper. 5. Simvastatin 40 mg p.o. daily. 6. Cholecalciferol 1000 units p.o. daily. 7. Torsemide 20 mg p.o. daily. HISTORY OF PRESENT ILLNESS/HOSPITAL COURSE: The patient is a 74-year-old gentleman with history of atrial fibrillation, on dabigatran; hypertension; and hyperlipidemia; who was admitted on 03/14/19 complaining of shortness of breath thought to be due to diastolic CHF exacerbation primarily. However, despite the patient achieving euvolemia, the patient was found to be still hypoxic and necessitating 4 L of nasal cannula to maintain sats even prior to discharge. This was subsequently further evaluated with ambulatory saturation prior to discharge. Given his obesity, he had an overnight oximetry study, which suggested a possible JAE given longest continuous time with saturation less than 88% was recorded to be 12 minutes and 44 seconds and there were at least 25 desaturation events of less than 3 minutes duration with mean high of 89% and mean low of 83.4% and thus the patient had been advised to speak with his primary care physician to refer him for a sleep study. He was also found to have mildly elevated troponin levels, which have trended down prior to his discharge and he did no complain of any chest pain. This was thought to be due to demand due to CHF exacerbation. The patient did have an echocardiogram on 03/14/19, which revealed mildly increased wall thickness of the left ventricle with an EF of 55% to 60% with [id number] septal flattening consistent with right ventricular pressure and volume overload. Left atrium is moderate to severely dilated. Right atrium is moderate to severely dilated. Aortic valve was not visualized; however, Doppler findings consistent with mild stenosis. There is [id number] tricuspid regurgitation. It did not show any wall motion abnormalities. He had been advised to follow up and/or call his PCP within 3 days post discharge. He was advised to speak with his PCP regarding need for sleep study as an outpatient given possibility of obstructive sleep apnea necessitating CPAP. If his symptoms resume or develop new ones or feel unwell for any reason , he was advised to call his PCP first and if his PCP is unable to entertain him due to scheduling issues alone, he was advised to call [facility] if the issue is nonemergent. He was advised to call my office regarding any questions, concerns, or further clarifications regarding his discharge plans and /or prescriptions and to take his medications as prescribed. REVIEW OF SYSTEMS: The patient denied any headaches, dizziness, fevers, chills , nausea, vomiting, chest pain, shortness of breath, increased coughing and/or sputum production, abdominal pain, diarrhea, constipation, pain and/or increased frequency in urination, myalgias, arthralgias, throat pain, or new skin lesions. The rest of the 14-point review of systems is otherwise unremarkable. PHYSICAL EXAMINATION: Shows the most recent vital signs of records with blood pressure of 140/70; 72 beats per minute heart rate; 16 per minute respiratory rate; saturating at 97% on 2 L nasal cannula, and on ambulatory saturation, he was found to be 84% on room air, but stable at 4 L. General Appearance: The patient is awake, alert, and oriented x4, not in acute distress, obese. HEENT: Normocephalic, atraumatic. PERRLA. Extraocular muscles intact. Negative for icterus. Difficult to assess JVD given obesity. Heart: S1, S2, irregularly irregular. No murmurs, rubs, or gallops. Chest: Clear to auscultation bilaterally. Good air entry. No wheezes, rales, or rhonchi. Abdomen is soft, nondistended, nontender. Normoactive bowel sounds x4 quadrants. Extremities: No cyanosis, clubbing, or edema. Psychiatric: No active psychosis, depression , suicidal or homicidal ideation. Skin is warm to touch. TIME SPENT: The total time spent evaluating the patient, reviewing pertinent data and appropriate documentation is an hour and 5 minutes. [id number]/[facility] #: [id number] MTDJaclyn
[2019-03-18 17:57] LABS: % Iron Saturation 6 % (15-55); Iron 31 ug/dL (50-212); Total Iron Binding Capacity 536 mcg/dL (250-450); Transferrin 383 mg/dL (203-362)
[2019-03-18 18:17] LABS: Ferritin 22.7 ng/mL (24-336)
== END 2019-03-17 13:50 | disposition home or self-care (01) | DRG 291 ==
LOC: ED 15:20 → MEDTELE 19:09
PROVIDERS: ADMIT Internal Medicine; ATTEND Student in an Organized Health Care Education/Training Program
DX: I11.0 Hypertensive heart disease with heart failure (principal); I50.31 Acute diastolic (congestive) heart failure; N17.9 Acute kidney failure, unspecified; L97.829 Non-pressure chronic ulcer of other part of left lower leg with unspecified severity; L97.819 Non-pressure chronic ulcer of other part of right lower leg with unspecified severity; J98.11 Atelectasis; I95.9 Hypotension, unspecified; E66.9 Obesity, unspecified; G47.33 Obstructive sleep apnea (adult) (pediatric); R09.02 Hypoxemia; R74.8 Abnormal levels of other serum enzymes; I48.91 Unspecified atrial fibrillation; E78.5 Hyperlipidemia, unspecified; I08.2 Rheumatic disorders of both aortic and tricuspid valves; Z68.39 Body mass index [BMI] 39.0-39.9, adult; Z79.01 Long term (current) use of anticoagulants; Z79.899 Other long term (current) drug therapy; Z87.891 Personal history of nicotine dependence
CPT/HCPCS: 36415; 36600; 71045; 71046; 80048; 80053; 80162; 82550; 82553; 82728; 82803; 83540; 83550; 83605; 83735; 83880; 84100; 84484; 85025; 85610; 85652; 85730; 86140; 87040; 93005; 93306; 94640; 99284; A9270-GY; C8929; J1940; J7512

== ENCOUNTER 2019-04-08 19:43 | Inpatient (IN) | payer MEDICARE, OTHER ==
--- NOTE | 2019-04-08 20:30 | ED ---
Complex/Multi-Sys Presentation - HPI Summary HPI Summary: This patient is a 74 year old M referred to [facility] by primary care provider accompanied by his son with a chief complaint of abnormal bloodwork since this afternoon. The patient went to Dr. Levy's, primary care provider, office this morning for fluid buildup in his lungs due to hx A-fib. Patient had bloodwork done in Dr. Levy's office, and it was remarkable for creatinine 3.1. The patient rates the pain 0/10 in severity. Symptoms aggravated by nothing. Symptoms alleviated by nothing. Patient reports fatigue, bilateral lower extremity swelling, and ulcers on bilateral lower legs. Patient additionally reports hypotension in primary care provider's office and at triage. Patient denies SOB and dizziness. Patient reports he is able to walk and drive. He goes to wound care in [place] for his lower extremity ulcers. Patient states he lives alone and takes Pradaxa blood thinner. Patient notes he does not have any history of kidney issues. Patient recently changed medication. - History Of Current Complaint Chief Complaint: EDGeneral Time Seen by Provider: 04/08/19 20:02 Hx Obtained From: Patient, Family/[employer] - son Onset/Duration: Lasting Hours - 8, Still Present Timing: Constant Severity Currently: None Aggravating Factor(s): Nothing Alleviating Factor(s): Nothing Associated Signs And Symptoms: Positive: Other - fatigue, bilateral lower extremity swelling, and ulcers on bilateral lower legs, hypotension. Negative: Dizziness, SOB Related History: Recent Hospitalization - came to [facility] about 3 weeks ago - Allergies/Home Medications Allergies/Adverse Reactions: Allergies Allergy/AdvReac Type Severity Reaction Status Date / Time No Known Allergies Allergy Verified 04/08/19 19:54 Home Medications: Home Medications Lisinopril 10 mg PO 04/08/19 [History] PMH/Surg Hx/FS Hx/Imm Hx Previously Healthy: No Endocrine/Hematology History: Denies: Hx Diabetes Cardiovascular History: Reports: Hx Atrial Fibrillation, Hx Hypertension Denies: Hx Cardiac Arrest Respiratory History: Denies: Hx Asthma, Hx Chronic Obstructive Pulmonary Disease (COPD) Sensory History: Reports: Hx Contacts or Glasses Denies: Hx Hearing Aid Opthamlomology History: Reports: Hx Contacts or Glasses - Surgical History Surgery Procedure, Year, and Place: APPENDECTOMY CHILD Infectious Disease History: No Infectious Disease History: Denies: Traveled Outside the [place] in Last 30 Days - Family History Known Family History: Positive: Cardiac Disease, Diabetes - Social History Alcohol Use: None Hx Substance Use: Yes Substance Use Type: Reports: Marijuana Hx Tobacco Use: Yes Smoking Status (MU): Former Smoker Review of Systems Positive: Fatigue Positive: Other - hypotension Negative: Shortness Of Breath Positive: Edema - BLE Positive: Other - BLE ulcers Neurological: Negative - dizziness All Other Systems Reviewed And Are Negative: Yes Physical Exam - Summary Physical Exam Summary: VITAL SIGNS: Reviewed. GENERAL: Patient is a well-developed and nourished MALE who is lying comfortable in the stretcher. Patient is not in any acute respiratory distress. HEAD AND FACE: No signs of trauma. No ecchymosis, hematomas or skull depressions. No sinus tenderness. EYES: PERRLA, EOMI x 2, No injected conjunctiva, no nystagmus. EARS: Hearing grossly intact. Ear canals and tympanic membranes are within normal limits. MOUTH: Oropharynx within normal limits. NECK: Supple, trachea is midline, no adenopathy, no JVD, no carotid bruit, no c- spine tenderness, neck with full ROM CHEST: Symmetric, no tenderness at palpation LUNGS: Decreased breath sounds bilaterally. No wheezing or crackles. CVS: Irregular Tachycardia, S1 and S2 present, no murmurs or gallops appreciated. ABDOMEN: Soft, non-tender. No signs of distention. No rebound no guarding, and no masses palpated. Bowel sounds are normal. EXTREMITIES: Trace lower extremity edema bilaterally and superficial chronic ulcers in both legs NEURO: Alert and oriented x 3. No acute neurological deficits. Speech is normal and follows commands. SKIN: Dry and warm Triage Information Reviewed: Yes Vital Signs On Initial Exam: Initial Vitals Temp Pulse Resp BP Pulse Ox 97.4 F 108 16 78/52 95 04/08/19 19:45 04/08/19 19:45 04/08/19 19:45 04/08/19 19:45 04/08/19 19:45 Vital Signs Reviewed: Yes Diagnostics - Vital Signs Vital Signs Temp Pulse Resp BP Pulse Ox 04/08/19 20:04 107 25 95 04/08/19 20:03 103 26 109/59 95 04/08/19 19:45 97.4 F 108 16 78/52 95 - Laboratory Result Diagrams: 04/08/19 20:05 04/09/19 00:46 Lab Statement: Any lab studies that have been ordered have been reviewed, and results considered in the medical decision making process. - Radiology Chest X-ray Radiology Interpretation Completed By: ED Physician Summary of Radiographic Findings: No acute process. Pending official report. - EKG 2030 Cardiac Rate: Tachycardia - 101 BPM EKG Rhythm: Atrial Fibrillation Re-Evaluation - Re-Evaluation First Eval Re-Evaluation Time: 21:19 Change: Unchanged Comment: Patient given update on course of treatment. He is agreeable to admission. Complex Multi-Symp Course/Dx Course Of Treatment: This patient is a 74 year old M referred to [facility] by primary care provider accompanied by his son with a chief complaint of abnormal bloodwork since this afternoon. The patient went to Dr. Levy's, primary care provider, office this morning for fluid buildup in his lungs due to hx A-fib. Patient had bloodwork done in Dr. Levy's office, and it was remarkable for creatinine 3.1. Patient reports fatigue, bilateral lower extremity swelling, and ulcers on bilateral lower legs. Patient additionally reports hypotension in primary care provider's office and at triage. Patient denies SOB and dizziness. Patient notes he does not have any history of kidney issues. Patient recently changed medication. Physical Exam shows trace lower extremity edema bilaterally , superficial chronic ulcers in both legs, and decreased breath sounds bilaterally. Lab results show WBC 11.6, Hgb 12.2, Hct 39, MCV 73, MCH 23, RDW 21, absolute neuts (auto) 8.6, INR 1.39, APTT 68.1, sodium 134, potassium 5.5, carbon dioxide 21, BUN 117, creatinine 2.80, and BUN/Creatinine 41.8. Chest X- ray impression: No acute process. EKG results: 101 BPM, A-fib. During ED course, the patient was given Digoxin, Metoprolol Tartrate, IV fluids. At 2113 , Dr. Byrd, hospitalist, agrees to admit patient. Patient will be admitted to the hospitalist. Patient is agreeable. - Diagnoses Provider Diagnoses: Acute renal failure - Physician Notifications Discussed Care Of Patient With: Yazmin Byrd Time Discussed With Above Provider: 21:14 Instructed by Provider To: Other - Dr. Byrd, hospitalist, agrees to admit patient. Discharge - Sign-Out/Discharge Documenting (check all that apply): Patient Departure - admit Patient Received Moderate/Deep Sedation with Procedure: No - Discharge Plan Condition: Stable Disposition: ADMITTED TO [facility] - Attestation Statements Document Initiated by Scribe: Yes Documenting Scribe: Elisa Mayfield Provider For Whom Scribe is Documenting (Include Credential): Dinorah Paulson MD Scribe Attestation: IElisa, scribed for Dinorah Paulson MD on 04/09/19 at 0340. Status of Scribe Document: Ready
--- OUTSIDE RECORDS SUMMARY | 2019-04-08 20:33 | XMS REPORT | Continuity of Care Document ---
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
--- OUTSIDE RECORDS SUMMARY | 2019-04-08 20:33 | XMS REPORT | Continuity of Care Document ---
:1945 External Reference #:[id number] Author Name Randy Orosco D.O. Address [address] [place] [address] Care Team Providers Name Role Phone HCP given Primary Care Physician Unavailable Payers Date Identification Numbers Payment Provider Subscriber Policy Number: [id number] RR Medicare Neal Iman PayID: [id number] [address] [address] [place] [address] Policy Number: [id number] [facility] Valerio PayID: [id number] [address] [place] [address] Family History Date Family Member(s) Observation Comments Children 2 1- Son; 1-daughter Social History Type Date Description Comments Sex Unknown Education High School Completed Marital Status Lives With Alone In Apartment Pets None 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 Work Status Retired Hand Dominance 03/14/2019 Right-handed Tobacco Use Start: Unknown End: Former Cigarette Smoker Smoked about 20 years, Unknown starting about age 20 Smoking Status Reviewed: 04/08/19 Former Cigarette Smoker Smoked about 20 years, starting about age 20 ETOH Use Rarely consumes alcohol Tobacco Use Start: Unknown Non Smoker Seat Belt/Car Seat always uses seat belt Smoke Alarms Yes smoke alarm Allergies, Adverse Reactions, Alerts Description No Known Drug Allergies Medications Active Medications SIG Qnty Indications Ordering Date Provider Ferrous Sulfate 1 every day for 90tabs D64.9 Gaurav Lloyd, 03/18/2019 anemia M.D. 325(65Fe) mg Tablets Torsemide 1 by mouth day Unknown 2019 20mg Tablets Metoprolol Succinate take one tablet by Unknown 03/16/2019 ER mouth every morning 100mg Tablets ER for high blood 24HR pressure and heart control Pradaxa 1 by mouth twice a Unknown 03/13/2019 150mg day Capsules Digoxin 1 by mouth every Unknown 03/13/2019 125mcg day Tablets Simvastatin take one tablet by Unknown 03/13/2019 40mg mouth every day for Tablets high cholesterol Lisinopril 1 by mouth every Unknown 03/13/2019 10mg day Tablets Vitamin D3 during winter Unknown 03/13/2019 1000Unit Capsules History Medications Amoxicillin 1 tab by mouth 20tabs Gaurav Lloyd, 03/22/2019 - 875mg Tablets twice a day x10 M.D. 04/02/2019 days Prednisone 30mg qd,2 Unknown 2019 - 10mg Tablets tabs/day x1 day, 03/20/2019 1 tab/day x1 day, 1/2 tab/day x1 day Vital Signs Date Vital Result Comment 04/08/2019 11:21am BP Systolic 67 mmHg Right arm sitting/ Pulse: 70 BP Diastolic 34 mmHg Right arm sitting/ Pulse: 70 BP Systolic Recheck 62 mmHg Left arm sitting/ Pulse: 40 BP Diastolic Recheck 34 mmHg Left arm sitting/ Pulse: 40 Body Temperature 97.5 F Weight 240.00 lb w/sneakers 03/18/2019 4:40pm BP Systolic 138 mmHg BP Diastolic 74 mmHg O2 % BldC Oximetry 93 % Weight 260.00 lb 03/14/2019 11:20am BP Systolic 102 mmHg BP Diastolic 64 mmHg Heart Rate 68 /min O2 % BldC Oximetry 92 % Height 68.75 inches 5'8.75" Weight 265.00 lb BMI (Body Mass Index) 39.4 kg/m2 Results Test Date Facility Test Result H/L Range Note Laboratory test 03/26/2019 In House Occult Positive finding Blood, F I T Wound 03/18/2019 [facility] Wound/Misc SEE RESULT 1 Culture/Sensi [phone] Culture-Gram BELOW Stain CBC Auto Diff 03/14/2019 [facility] White Blood 9.5 10^3/uL N 3.5- 10.8 [phone] Count Red Blood Count 4.55 10^6/uL N 4.18-5.48 Hemoglobin 10.3 g/dL Low 14.0-18.0 Hematocrit 34 % Low 42-52 Mean Corpuscular Volume 74 fL Low 80-94 Mean Corpuscular Hemoglobin 23 pg Low 27-31 Mean Corpuscular HGB Conc 31 g/dL N 31-36 Red Cell Distribution Width 18 % High 10.5-15 Platelet Count 351 10^3/uL N 150-450 Mean Platelet Volume 7.7 fL N 7.4-10.4 Abs Neutrophils 7.2 10^3/uL N 1.5-7.7 Abs Lymphocytes 1.1 10^3/uL N 1.0-4.8 Abs Monocytes 1.0 10^3/uL High 0-0.8 Abs Eosinophils 0.1 10^3/uL N 0-0.6 Abs Basophils 0.1 10^3/uL N 0-0.2 Abs Nucleated RBC 0.0 10^3/uL Granulocyte % 75.8 % Lymphocyte % 11.9 % Monocyte % 10.5 % Eosinophil % 0.9 % Basophil % 0.9 % Nucleated Red Blood Cells % 0.0 Laboratory test 03/14/2019 [facility] B-Type Natriuretic 319 pg/mL High <=100 finding [phone] Peptide BNP Blood Culture SEE RESULT BELOW 2 Laboratory test finding 03/14/2019 In House Hemoglobin A1c 5.9 Glucose Quantitative 125 Laboratory test 03/14/2019 [facility] Partial 45.6 seconds High 26.0- 36.3 finding [phone] Thrombo Time PTT Lactic Acid 2.2 mmol/L High 0.5-2.0 3 Inr/Protime 03/14/2019 [facility] Inr 1.53 High 0.82-1.09 4 [phone] Laboratory test 03/14/2019 [facility] Troponin-I 0.04 High <0.04 5 finding [phone] (TnI) ng/mL Xray 03/14/2019 [facility] Medicine X-Ray, <pending> Chest, 2 Views Comp Metabolic 03/14/2019 [facility] Sodium 141 N 135-145 Panel [phone] mmol/L Potassium 4.6 mmol/L N 3.5-5.0 Chloride 104 mmol/L N 101-111 Co2 Carbon Dioxide 31 mmol/L N 22-32 Anion Gap 6 mmol/L N 2-11 Glucose 128 mg/dL High 70-100 Blood Urea Nitrogen 32 mg/dL High 6-24 Creatinine 1.32 mg/dL High 0.67-1.17 BUN/Creatinine Ratio 24.2 High 8-20 Calcium 9.5 mg/dL N 8.6-10.3 Total Protein 7.3 g/dL N 6.4-8.9 Albumin 3.8 g/dL N 3.2-5.2 Globulin 3.5 g/dL N 2-4 Albumin/Globulin Ratio 1.1 N 1-3 Total Bilirubin 0.70 mg/dL N 0.2-1.0 Alkaline Phosphatase 130 U/L High 34-104 Alt 16 U/L N 7-52 Ast 22 U/L N 13-39 Egfr Non- 53.0 >60 Egfr 64.2 >60 6 1 SEE RESULT BELOW Name: KAYLANMELVANAIF HARRISON : [address]: Kisha MONTERO Acct: [id number] Unit: [id number] AGE: 74 Location: [facility] Re03/18/19 SEX: M Status: REG REF SPEC: [id number] EVELINE: 03/18/19-[address] [facility] [address]: Kisha MONTERO REQ: [id number] RECD: 03/19/19-8272 STATUS: COMP _ SOURCE: LEG, RIGHT SPDESC: ORDERED: Culture Stain COMMENTS: [id number] Specimen Description d/c from wound R leg Procedure Result Reported Site Wound/Misc Gram Stain Final 03/19/19- 1510 ML 1+ Epithelial Cells No Neutrophils Observed 4+ Gram Positive Cocci Wound/Misc Culture Final 03/22/19- 0904 ML Beta Lactamase Negative Organism 1 STAPHYLOCOCCUS AUREUS Quantity 3+ Organism 2 STREP AGALACTIAE - (GROUP B) Quantity 3+ 1. STAPHYLOCOCCUS AUREUS M.I.C. RX --------- ------ Penicillin 0.12 S Clindamycin <=0.25 S Erythromycin <=0.25 S Gentamicin <=0.5 S Linezolid 2 S Oxacillin <=0.25 S * Quinupristin/Dalfopristin <=0.25 S Rifampin <=0.5 S Tetracycline <=1 S Doxycycline - Deduced S * Minocycline - Deduced S CONTINUED ON NEXT PAGE DEPARTMENT OF PATHOLOGY, [address] [place] [address] Avtar Queen M.D. Director [facility] # [id number] Patient: NAIF VALERIO [id number] (Continued) Specimen: [id number] Collected: 03/18/19 Received: 03/19/19 (Continued) Procedure Result Reported Site Wound/Misc Culture Final (continued) 03/22/19903 1. STAPHYLOCOCCUS AUREUS (continued) M.I.C. RX --------- ------ Trimethoprim/Sulfamethoxazole <=10 S Vancomycin 1 S Imipenem-Deduced S * Ampicillin/Sulbactam-Deduced S Cefazolin-Deduced S 2. STREP AGALACTIAE - (GROUP B) M.I.C. RX --------- ------ Ampicillin <=0.25 S Penicillin <=0.12 S Clindamycin R Levofloxacin 0.5 S Linezolid 1 S * Moxifloxacin <=0.25 S * Quinupristin/Dalfopristin <=0.25 S Tetracycline <=1 S Doxycycline - Deduced S * Minocycline - Deduced S Tigecycline <=0.12 S Vancomycin <=0.5 S Imipenem-Deduced S * Ampicillin/Sulbactam-Deduced S Cefazolin-Deduced S * These antibiotics are not available in the [facility] Formulary Contact the Microbiology Department for any additional antibiotic reporting. * - Main Lab . END OF REPORT DEPARTMENT OF PATHOLOGY, [address] [place] [address] Avtar Queen M.D. Director [facility] # [id number] 2 SEE RESULT BELOW Name: NAIF VALERIO : [address]: Heron Erickson MD Acct: [id number] Unit: [id number] AGE: 74 Location: [place] [address] Re03/14/19 Dis: 03/17/19 SEX: M Status: DIS IN SPEC: [id number] EVELINE: 03/14/[address] [facility] [address]: Layton Gya MD REQ: [id number] RECD: 03/14/19 STATUS: SHIRLEY DREW DR: Randy Orosco DO _ SOURCE: BLOOD,VENO SPDES: ORDERED: Blood Cult Procedure Result Reported Site Aerobic Culture Bottle Final 03/19/191640 ML No Growth Day 5 Anaerobic Culture Bottle Final 03/19/191640 ML No Growth Day 5 * ML - Main Lab . END OF REPORT DEPARTMENT OF PATHOLOGY, [address] [place] [address] Avtar Queen M.D. Director [facility] # [id number] 3 Critical Result LACT:2.2 Called to JUAN at: 17:05:36 by:[email or web address] Read back by:JUAN [facility] Severe Sepsis and Septic Shock Management Bundle Measure requires all lactic acids initially measuring >2.0 mmol/L be repeated. 4 Standard intensity warfarin therapeutic range: 2.0-3.0 High intensity warfarin therapeutic range: 2.5-3.5 5 Result TnIDx:0.04 Called to [id number] at: 17:06:53 by:[id number] Read back by: [id number] Troponin-I testing on Plasma Separator Tubes (PST) has a known false positive rate of 0.20-0.40%. All positive troponins reflex immediately to secondary confirmatory testing. Using the [employer]edoX 800 Access Immunoassay systems, the 99th percentile upper reference limit was demonstrated to be < 0.03 ng/mL. 6 Because ethnic data is not always readily available, this report includes an eGFR for both -Americans and non- Americans. The National Kidney Disease Education Program (NKDEP) does not endorse the use of the MDRD equation for patients that are not between the ages of 18 and 70, are , have extremes of body size, muscle mass, or nutritional status, or are non- or non-. According to the National Kidney Foundation, irrespective of diagnosis, the stage of the disease is based on the level of kidney function: Stage Description GFR(mL/min/1.73 m(2)) 1 Kidney damage with normal or decreased GFR 90 2 Kidney damage with mild decrease in GFR 60-89 3 Moderate decrease in GFR 30-59 4 Severe decrease in GFR 15-29 5 Kidney failure <15 (or dialysis) Procedures Date Code Description Status 03/18/2019 75671 Spirometry Completed 03/14/2019 67760 Electrocardiogram Complete Completed 03/14/2019 72987 X-Ray Chest 2 V Completed Encounters Type Date Location Provider Dx Diagnosis Office Visit 04/08/2019 Main Office Randy Orosco, D64.9 Anemia, unspecified 10:30a D.O. R06.02 Shortness of breath I87.2 Venous insufficiency (chronic) (peripheral) G47.9 Sleep disorder, unspecified J44.9 Chronic obstructive pulmonary disease, unspecified L03.115 Cellulitis of right lower limb L03.116 Cellulitis of left lower limb I10 Essential (primary) hypertension I48.2 Chronic atrial fibrillation G47.37 Central sleep apnea in conditions classified elsewhere Z87.891 Personal history of nicotine dependence Z91.81 History of falling R29.6 Repeated falls R53.83 Other fatigue R19.7 Diarrhea, unspecified R35.1 Nocturia I50.9 Heart failure, unspecified Office Visit 03/18/2019 4:00p Main Office Kisha Hendrix, D64.9 Anemia, unspecified P.A. R06.02 Shortness of breath I50.20 Unspecified systolic (congestive) heart failure I87.2 Venous insufficiency (chronic) (peripheral) G47.9 Sleep disorder, unspecified J44.9 Chronic obstructive pulmonary disease, unspecified L03.115 Cellulitis of right lower limb I10 Essential (primary) hypertension I48.2 Chronic atrial fibrillation G47.37 Central sleep apnea in conditions classified elsewhere Z87.891 Personal history of nicotine dependence Office Visit 03/14/2019 11:20a Main Office Kisha Ruma, I50.20 Unspecified systolic P.A. (congestive) heart failure R06.02 Shortness of breath I87.2 Venous insufficiency (chronic) (peripheral) E66.9 Obesity, unspecified L03.116 Cellulitis of left lower limb L03.115 Cellulitis of right lower limb Z68.39 Body mass index (BMI) 39.0-39.9, adult Plan of Treatment Future Appointment(s):04/09/2019 11:15 am - Nurse's Schedule at Main Uwffko6504/17 2:30 pm - Randy Orosco D.O. at Main Mhsgkn2904/08/2019 - Randy Orosco D.O.D64.9 Anemia, qdwcsjccnjrY42.02 Shortness of pinxehT43.2 Venous insufficiency (chronic) (peripheral)G47.9 Sleep disorder, njirekskdtbJ75.9 Chronic obstructive pulmonary disease, defkxjpyzwhP24.115 Cellulitis of right lower limbL03.116 Cellulitis of left lower limbI10 Essential (primary) hypertensionFollow up:Hold Lisinopril, Metoprolol, and Torsemide tonight (2018) Nurse visit BP check (04/09/2019) Asscheduled with MS on 04/17/2019)I48.2 Chronic atrial cymlezehozcvO72.37 Central sleep apnea in conditions classified nppfchvptP68.891 Personal history of nicotine zqfzmfzeetR89.81 History of rnxjjkbW90.6 Repeated zuoycS83.83 Other mbgjhtoN09.7 Diarrhea, leuhfmaegnaB33.1 UbktcgcuC93.9 Heart failure, unspecified
--- OUTSIDE RECORDS SUMMARY | 2019-04-08 20:33 | XMS REPORT | Continuity of Care Document ---
:1945 External Reference #:[id number] Author Name Randy Orosco D.O. Address [address] [place] [address] Care Team Providers Name Role Phone HCP given Primary Care Physician Unavailable Payers Date Identification Numbers Payment Provider Subscriber Policy Number: [id number] [facility] Naif Valerio PayID: [id number] [address] [place] [address] Policy Number: [id number] [facility] Naif Valerio PayID: [id number] [address] [place] [address] Family History Date Family Member(s) Observation Comments Children 2 1- Son; 1-daughter Social History Type Date Description Comments Sex Unknown Education High School Completed Marital Status Lives With Alone In Apartment Pets None Occupation Office Clin Asst Work Status Retired Hand Dominance 03/14/2019 Right-handed Tobacco Use Start: Unknown Never Smoked Cigarettes ETOH Use Rarely consumes alcohol Tobacco Use Start: Unknown Non Smoker Smoking Status Reviewed: 03/14/19 Non Smoker Seat Belt/Car Seat always uses seat belt Smoke Alarms Yes smoke alarm Allergies, Adverse Reactions, Alerts Description No Known Drug Allergies Medications Active Medications SIG Qnty Indications Ordering Provider Date Pradaxa 1 by mouth twice a Unknown 03/13/2019 150mg day Capsules Digoxin 1 by mouth every day Unknown 03/13/2019 125mcg Tablets Metoprolol Succinate take one tablet by Unknown 03/13/2019 ER mouth every morning 200mg Tablets ER for high blood 24HR pressure and heart control Simvastatin take one tablet by Unknown 03/13/2019 40mg mouth every day for Tablets high cholesterol Lisinopril 1 by mouth every day Unknown 03/13/2019 10mg Tablets Vitamin D3 during winter Unknown 03/13/2019 1000Unit Capsules Vital Signs Date Vital Result Comment 03/14/2019 11:20am BP Systolic 102 mmHg BP Diastolic 64 mmHg Heart Rate 68 /min O2 % BldC Oximetry 92 % Height 68.75 inches 5'8.75" Weight 265.00 lb BMI (Body Mass Index) 39.4 kg/m2 Results Test Date Facility Test Result H/L Range Note Laboratory test finding 03/14/2019 In House Hemoglobin A1c 5.9 Glucose Quantitative 125 Xray 03/14/2019 [facility] Medicine X-Ray, Chest, 2 Views <pending> Procedures Date Code Description Status 03/14/2019 38301 Electrocardiogram Complete Completed 03/14/2019 51171 X-Ray Chest 2 V Completed Encounters Type Date Location Provider Dx Diagnosis Office Visit 03/14/2019 Main Office Kisha Hendrix I50.20 Unspecified systolic 11:20a P.A. (congestive) heart failure R06.02 Shortness of breath I87.2 Venous insufficiency (chronic) (peripheral) E66.9 Obesity, unspecified L03.116 Cellulitis of left lower limb L03.115 Cellulitis of right lower limb Z68.39 Body mass index (BMI) 39.0-39.9, adult Plan of Treatment 03/14/2019 - Kisha Hendrix PElliI50.20 Unspecified systolic (congestive) heart failureComments:Dr. Randy Orosco reviewed all records and had final consultation with this patient This [facility] and E[facility] up: Pt was referred to the [facility] ED. States wanted to go home for couple minutes then would be driven there by his son. Pt seemed to be settled with the idea that he would likely be admitted to the hospital for a few days.R06.02 Shortness of breathNew Orders:Oximetry Multiple, Scheduled: 03/14/19Comments: CXR showed bilaterally basilar lung congestion, R>L; and possibly enlarge heart. In house glucose was 125; A1C: 5.9%EKG showed a-fib and indications of possible R ventricular enlargement.I87.2 Venous insufficiency (chronic) ( peripheral)Follow up:discussed that if pt is kept in the hospital he will likely be referred to wound care center: [place]66.9 Obesity, unspecifiedNew Orders:Oximetry Multiple, Scheduled: L03.116 Cellulitis of left lower limbL03.115 Cellulitis of right lower limbZ68.39 Body mass index (BMI) 39.0-39.9, adult
--- OUTSIDE RECORDS SUMMARY | 2019-04-08 20:33 | XMS REPORT | Continuity of Care Document ---
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 Randy Orosco DO Primary Care Physician Unavailable Payers Date Identification Numbers Payment Provider Subscriber Policy Number: [id number] RR Medicare Naif Valerio PayID: [id number] [address] [address] [place] [address] Policy Number: [id number] [facility] Naif Valerio PayID: [id number] [address] [place] [address] Social History Type Date Description Comments Sex Unknown Tobacco Use Start: Unknown End: Unknown Patient is a former smoker Smoking Status Reviewed: 04/01/19 Patient is a former smoker Allergies, Adverse Reactions, Alerts Description No Known Drug Allergies Medications Active Medications SIG Qnty Indications Ordering Date Provider Ferrous Sulfate 1 every day for 90tabs D64.9 Gaurav Lloyd, 03/18/2019 anemia 325(65Fe) mg Tablets Torsemide 1 by mouth [...] - 875mg Tablets twice a day x10 04/01/2019 days Prednisone 30mg qd,2 Unknown 2019 - 10mg Tablets tabs/day x1 day, 04/01/2019 1 tab/day x1 day, 1/2 tab/day x1 day Vital Signs Date Vital Result Comment 04/01/2019 11:02am Height 69 inches 5'9" Weight 242.00 lb BP Systolic 84 mmHg BP Diastolic 45 mmHg Heart Rate 87 /min BMI (Body Mass Index) 35.7 kg/m2 Results Test Date Facility Test Result H/L Range Note Lab Results 03/26/2019 N2N/CCD Import Occult Blood, F I T Positive Lab Results 03/14/2019 N2N/CCD Import Sodium 141 mmol/L 135-145 Potassium 4.6 mmol/L 3.5-5 Chloride 104 mmol/L 101-111 Co2 Carbon Dioxide 31 mmol/L 22-32 Anion Gap 6 mmol/L 2-11 Glucose 128 mg/dL High 70-100 Blood Urea Nitrogen 32 mg/dL High 6-24 Creatinine 1.32 mg/dL High 0.67-1.17 BUN/Creatinine Ratio 24.2 1 High 8-20 Calcium 9.5 mg/dL 8.6-10.3 Total Protein 7.3 g/dL 6.4-8.9 Albumin 3.8 g/dL 3.2-5.2 Globulin 3.5 g/dL 2-4 Albumin/Globulin Ratio 1.1 1 1-3 Total Bilirubin 0.70 mg/dL 0.2-1 Alkaline Phosphatase 130 U/L High 34-104 Alt 16 U/L 7-52 Ast 22 U/L 13-39 Egfr Non- 53.0 1 Egfr 64.2 1 1 Troponin-I (TnI) 0.04 ng/mL High 2 Inr 1.53 1 High 0.82-1.09 3 Partial Thrombo Time PTT 45.6 s High 26-36.3 Lactic Acid 2.2 mmol/L High 0.5-2 4 Lab Results 03/14/2019 N2N/CCD Import Troponin-I (TnI) 0.04 ng/mL High 5 Inr 1.53 1 High 0.82-1.09 6 Partial Thrombo Time PTT 45.6 s High 26-36.3 Lactic Acid 2.2 mmol/L High 0.5-2 7 Lab Results 03/14/2019 N2N/CCD Import Inr 1.53 1 High 0.82-1.09 8 Partial Thrombo Time PTT 45.6 s High 26-36.3 Lactic Acid 2.2 mmol/L High 0.5-2 9 Lab Results 03/14/2019 N2N/CCD Import Partial Thrombo Time PTT 45.6 s High 26-36.3 Lactic Acid 2.2 mmol/L High 0.5-2 10 CBC Auto Diff 03/14/2019 N2N/CCD Import White Blood Count 9.5 10^3/uL 3.5-10.8 Red Blood Count 4.55 10^6/uL 4.18-5.48 Hemoglobin 10.3 g/dL Low 14-18 Hematocrit 34 % Low 42-52 Mean Corpuscular Volume 74 fL Low 80-94 Mean Corpuscular Hemoglobin 23 pg Low 27-31 Mean Corpuscular HGB Conc 31 g/dL 31-36 Red Cell Distribution Width 18 % High 10.5-15 Platelet Count 351 10^3/uL 150-450 Mean Platelet Volume 7.7 fL 7.4-10.4 Abs Neutrophils 7.2 10^3/uL 1.5-7.7 Abs Lymphocytes 1.1 10^3/uL 1-4.8 Abs Monocytes 1.0 10^3/uL High 0-0.8 Abs Eosinophils 0.1 10^3/uL 0-0.6 Abs Basophils 0.1 10^3/uL 0-0.2 Abs Nucleated RBC 0.0 10^3/uL Granulocyte % 75.8 % Lymphocyte % 11.9 % Monocyte % 10.5 % Eosinophil % 0.9 % Basophil % 0.9 % Nucleated Red Blood Cells % 0.0 1 Lab Results 03/14/2019 N2N/CCD Import B-Type Natriuretic Peptide 319 pg/mL High BNP Blood Culture See Result Below 11 1 Because ethnic data is not always readily [...] 15-29 5 Kidney failure <15 (or dialysis) 2 Result TnIDx:0.04 Called to [id number] at: 17:06:53 by:[id number] Read back by: [id number] Troponin-I testing on Plasma Separator Tubes (PST) has a known false positive rate of 0.20-0.40%. All positive troponins reflex immediately to secondary confirmatory testing. Using the [employer] DxI 800 Access Immunoassay systems, the 99th percentile upper reference limit was demonstrated to be < 0.03 ng/mL. 3 Result TnIDx:0.04 Called to [id number] at: 17:06:53 by:[id number] Read back by: [id number] Troponin-I testing on Plasma Separator Tubes (PST) has a known false positive rate of 0.20-0.40%. All positive troponins reflex immediately to secondary confirmatory testing. Using the [employer] DxI 800 Access Immunoassay systems, the 99th percentile upper reference limit was demonstrated to be < 0.03 ng/mL. 4 Critical Result LACT:2.2 Called to [id number] at: 17:05:36 by:[id number] Read back by:[id number] Severe Sepsis and Septic Shock Management Bundle Measure requires all lactic acids initially measuring >2.0 mmol/L be repeated. 5 Result TnIDx:0.04 Called to [id number] at: 17:06:53 by:[id number] Read back by: [id number] Troponin-I testing on Plasma Separator Tubes (PST) has a known false positive rate of 0.20-0.40%. All positive troponins reflex immediately to secondary confirmatory testing. Using the [employer] DxI 800 Access Immunoassay systems, the 99th percentile upper reference limit was demonstrated to be < 0.03 ng/mL. 6 Result TnIDx:0.04 Called to [id number] at: 17:06:53 by:[id number] Read back by: [id number] Troponin-I testing on Plasma Separator Tubes (PST) has a known false positive rate of 0.20-0.40%. All positive troponins reflex immediately to secondary confirmatory testing. Using the [employer] DxI 800 Access Immunoassay systems, the 99th percentile upper reference limit was demonstrated to be < 0.03 ng/mL. 7 Critical Result LACT:2.2 Called to [id number] at: 17:05:36 by:[id number] Read back by:[id number] [facility] Severe Sepsis and Septic Shock Management Bundle Measure requires all lactic acids initially measuring >2.0 mmol/L be repeated. 8 Result TnIDx:0.04 Called to [id number] at: 17:06:53 by:[id number] Read back by: [id number] Troponin-I testing on Plasma Separator Tubes (PST) has a known false positive rate of 0.20-0.40%. All positive troponins reflex immediately to secondary confirmatory testing. Using the [employer] DxI 800 Access Immunoassay systems, the 99th percentile upper reference limit was demonstrated to be < 0.03 ng/mL. 9 Critical Result LACT:2.2 Called to [id number] at: 17:05:36 by:[id number] Read back by:[id number] [facility] Severe Sepsis and Septic Shock Management Bundle Measure requires all lactic acids initially measuring >2.0 mmol/L be repeated. 10 Critical Result LACT:2.2 Called to [id number] at: 17:05:36 by:[id number] Read back by:[id number] [facility] Severe Sepsis and Septic Shock Management Bundle Measure requires all lactic acids initially measuring >2.0 mmol/L be repeated. 11 Critical Result LACT:2.2 Called to [id number] at: 17:05:36 by:[id number] Read back by:[id number] [facility] Severe Sepsis and Septic Shock Management Bundle Measure requires all lactic acids initially measuring >2.0 mmol/L be repeated. Plan of Treatment Future Appointment(s):04/30/2019 1:00 pm - Jodie Monte MD at [facility]04/01/2019 - Jodie Monte, MDD50.9 Iron deficiency anemia, fgvphuvpwvpA27.5 Other fecal qycfmsravdumwX50.01 custodial ( current) use of anticoagulants
--- OUTSIDE RECORDS SUMMARY | 2019-04-08 20:33 | XMS REPORT | Continuity of Care Document ---
:1945 External Reference #:[id number] Author Name Adriana Holland Care Team Providers Name Role Phone Randy Orosco DO Primary Care Physician Unavailable Payers Date Identification Numbers Payment Provider Subscriber Policy Number: [id number] Medicare Naif Valerio PayID: [id number] [address] [place] [address] Policy Number: [id number] [facility] Naif Valerio PayID: [id number] [address] [place] [address] Family History Date Family Member(s) Observation Comments Father Heart issue Not sure which Siblings 2 First Sister due to Diabetes () Social History Type Date Description Comments Sex Unknown Marital Status Single Lives With Alone Occupation Retired Occupation Chemist Retired Tobacco Use Start: Unknown End: Former Cigarette Smoker 18 per day. 10 years. Smoking Status Reviewed: 03/27/19 Former Cigarette Smoker 18 per day. 10 years. ETOH Use Drinks Alcoholic Beverages Rarely Recreational Drug Use Sporadically uses Marijuana Tobacco Use Start: Unknown End: Patient is a former Unknown smoker Exercise Type/Frequency Exercises rarely Allergies, Adverse Reactions, Alerts Description No Known Drug Allergies Medications Active Medications SIG Qnty Indications Ordering Provider Date Digoxin 1 by mouth every Unknown 125mcg Tablets day Lisinopril 1 by mouth every Unknown 10mg Tablets day Simvastatin 1 by mouth every Unknown 40mg day Tablets Metoprolol 100 mg. 1 by mouth Unknown one time per day Pradaxa 1 tab by mouth Unknown 150mg Capsules twice a day Amoxicillin Take One Tablet By Unknown 875mg Mouth Twice A Day Tablets For 10 Days Diuretic Pt does not Unknown remember name Vital Signs Date Vital Result Comment 03/27/2019 1:44pm Height 69 inches 5'9" Weight 239.25 lb Heart Rate 86 /min BP Systolic Sitting 100 mmHg Rue large cuff BP Diastolic Sitting 58 mmHg Rue large cuff Respiratory Rate 16 /min O2 % BldC Oximetry 94 % On Ra BMI (Body Mass Index) 35.3 kg/m2 Neck Circumference in inches 18 Encounters Type Date Location Provider Dx Diagnosis Office Visit 03/27/2019 [facility] Vania Guerrero G47.9 Sleep disorder, 2:00p Sleep Services Of unspecified Kacey R09.02 Hypoxemia Office Visit 2019 [facility] Heron Sanchez I50.9 Heart failure, 10:15a Assocsultana MD unspecified Hospitalists E66.9 Obesity, unspecified R79.89 Other specified abnormal findings of blood chemistry I48.91 Unspecified atrial fibrillation Office Visit 03/16/2019 10:14a [facility] Heron Sanchez R06.02 Shortness of Assoc,sultana Erickson MD breath Hospitalists I95.9 Hypotension, unspecified R74.8 Abnormal levels of other serum enzymes N28.9 Disorder of kidney and ureter, unspecified I48.91 Unspecified atrial fibrillation Office Visit 03/15/2019 10:14a [facility] Heron Sanchez R06.02 Shortness of Assoc,sultana Erickson MD breath Hospitalists I95.9 Hypotension, unspecified R74.8 Abnormal levels of other serum enzymes N28.9 Disorder of kidney and ureter, unspecified I48.91 Unspecified atrial fibrillation [facility] Shortness of Assoc,sultana Plata NP breath Hospitalists I48.91 Unspecified atrial fibrillation E78.5 Hyperlipidemia, unspecified I10 Essential (primary) hypertension R79.89 Other specified abnormal findings of blood chemistry Plan of Treatment Future Appointment(s):04/15/2019 1:30 pm - Melinda Sweet NP at [facility]03/27/2019 - Vania Guerrero MDG47.9 Sleep disorder, unspecifiedNew Orders:Home Sleep Testing, Ordered: 03/27/19Follow up: 2 zhmplY05.02 Hypoxemia
--- OUTSIDE RECORDS SUMMARY | 2019-04-08 20:34 | XMS REPORT | Continuity of Care Document ---
:1945 External Reference #:[id number] Author Name Nohemy Waite Care Team Providers Name Role Phone HCP given Primary Care Physician Unavailable Payers Date Identification Numbers Payment Provider Subscriber Policy Number: [id number] [facility] Naif Valerio PayID: [id number] [address] [place] [address] Policy Number: [id number] [facility] Naif Valerio PayID: [id number] [address] [place] [address] Family History Date Family Member(s) Observation Comments Children 2 1- Son; 1-daughter Social History Type Date Description Comments Sex Unknown Education High School Completed Marital Status Lives With Alone In Apartment Pets None 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
[2019-04-08 20:43] LABS: ABS Basophils 0.1 10^3/ul (0-0.2); ABS Eosinophils 0.3 10^3/ul (0-0.6); ABS Lymphocytes 1.7 10^3/ul (1.0-4.8); ABS Monocytes 0.7 10^3/ul (0-0.8); ABS Neutrophils 8.6 10^3/ul (1.5-7.7); Hematocrit 39 % (42-52); Hemoglobin 12.2 g/dL (14.0-18.0); Lymphocyte % 15.1 %; Mean Corpuscular HGB Conc 31 g/dL (31-36); Mean Corpuscular Hemoglobin 23 pg (27-31); Mean Corpuscular Volume 73 fL (80-94); Mean Platelet Volume 7.9 fL (7.4-10.4); Platelet Count 406 10^3/uL (150-450); Red Blood Count 5.43 10^6 /uL (4.18-5.48); Red Cell Distribution Width 21 % (10-15); White Blood Count 11.6 10^3/uL (3.5-10.8)
[2019-04-08 20:45] LABS: Activated Partial Thrombo Time 68.1 seconds (26.0-38.0); INR 1.39 (0.82-1.09)
[2019-04-08 20:57] LABS: Albumin 4.1 g/dL (3.2-5.2); Albumin/Globulin Ratio 1.1 (1-3); BUN/Creatinine Ratio 35.5 (8-20); Calcium 9.7 mg/dL (8.6-10.3); EGFR African American 21.6 (>60); EGFR Non-African American 17.9 (>60); Globulin 3.6 g/dL (2-4); Magnesium 2.7 mg/dL (1.9-2.7); Phosphorus 8.6 mg/dL (2.5-5.0); Total Bilirubin 0.5 mg/dL (0.2-1.0); Total Protein 7.7 g/dL (6.4-8.9)
[2019-04-08 21:01] LABS: Digoxin 0.6 ng/ml (0.8-2.0)
[2019-04-08] MEDS ORDERED: NS 0.9% 1000 ML** 1,000 ML IV ONE (21:01)
[2019-04-08] MEDS ORDERED: Metoprolol Tartrate IV* 1 MG/ML 5 ML VIAL IV ONE (21:01)
[2019-04-08 21:07] LABS: Potassium 5.4 mmol/L (3.5-5.0)
[2019-04-08 21:16] LABS: TSH (Thyroid Stimulating Horm) 2.99 mcIU/mL (0.34-5.60)
[2019-04-08] MEDS ORDERED: Digoxin IV* 0.5 MG/2 ML AMP (0.25 MG/ML) IV SLOW PU ONE (21:21)
[2019-04-08] MEDS ORDERED: Dextrose 50% Syringe 50 ML* 25 GM/50 ML SYRINGE IV PUSH ONE (21:50)
[2019-04-08] MEDS ORDERED: Calcium Gluconate INJ* 1 GM in NS 0.9% 100 ML* 100 ML IVPB ONE (21:50)
[2019-04-08] MEDS ORDERED: Insulin REGULAR(*) 1 UNITS UNIT IV PUSH ONE (21:50)
[2019-04-08] MEDS ORDERED: Ondansetron INJ* 2 MG/ML VIAL IV PRN (21:53)
[2019-04-08] MEDS ORDERED: Al Hydrox/Mg Hydrox/Simet LIQ* 30 ML UDC PO PRN (21:53)
[2019-04-08] MEDS ORDERED: Acetaminophen TAB* 325 MG PO PRN (21:53)
--- NOTE | 2019-04-08 23:08 | HP ---
CC: Randy Orosco DO * HISTORY AND PHYSICAL: DATE OF ADMISSION: 04/08/19 TIME OF EVALUATION: 2099 PRIMARY CARE PHYSICIAN: Randy Orosco DO CHIEF COMPLAINT: Abnormal labs. HISTORY OF PRESENT ILLNESS: This is a 74-year-old male with a past medical history of chronic atrial fibrillation, on anticoagulation and diastolic heart failure, who was admitted from 03/15/19 to 03/17/19 for an episode of presumed diastolic heart failure and was discharged home on torsemide. The patient states he has been doing relatively okay. However, he has been very fatigued and tired and not sleeping well. He gets up, he states, 6 times at night to urinate. He denies any chest pain. No shortness of breath. He states he has not needed to use the oxygen. He states he lost about 30 pounds since his admission last month. No lower extremity swelling. No cough. No fevers. He has been doing his usual activity. No lightheadedness, no dizziness, no falls, no syncope. He was actually out camping at [facility]. He went in for followup with his primary care physician today and they did blood work in the setting of his fatigue and found that he had significant renal failure and recommended he go to the emergency room for further evaluation. The patient notes he has had 2 episodes of diarrhea per day. No blood or black stools. He states he is still urinating as mentioned significant nocturia 6 times per night. He denies any NSAID use. When he went to see his primary, they lowered his metoprolol dose to 100 in the setting of his low blood pressure. Otherwise , remaining review of systems is negative. In the emergency room, the patient had labs, EKG. They gave him a L of normal saline, digoxin 0.125, and referred to the hospitalist service for further evaluation. PAST MEDICAL HISTORY: 1. History of chronic atrial fibrillation, on anticoagulation. 2. History of diastolic congestive heart failure, ejection fraction 55% to 60%. 3. Obesity, question of obstructive sleep apnea. 4. History of acute kidney injury. 5. Iron deficiency anemia. 6. Hyperlipidemia. 7. Severe pulmonary hypertension. MEDICATIONS: 1. Torsemide 20 mg p.o. daily. 2. Ferrous sulfate 325 mg p.o. daily. 3. Lisinopril 10 mg p.o. daily. 4. Digoxin 0.125 mg p.o. daily. 5. Pradaxa 150 mg p.o. b.i.d. 6. Vitamin D3 of 1000 units p.o. daily. ALLERGIES: No known drug allergies. FAMILY HISTORY: Reviewed and noncontributory. SOCIAL HISTORY: The patient lives alone. As mentioned, he is independent of his ADLs. He still drives. He quit smoking in 1984, smoked a pack per day for 20 years. Rare alcohol use. His son, Francesco, is his healthcare proxy, who is at the bedside. Code status is full code. REVIEW OF SYSTEMS: A 14-point review of systems as mentioned in the HPI, otherwise negative. PHYSICAL EXAMINATION GENERAL: In no acute distress. Resting comfortably with his son at the bedside. VITAL SIGNS: Temp 97.4; pulse rate is recording as in the 200s but it is in the 100s, low 90s as it is recording the peaked T-wave as an extra beat; respiratory rate 16; oxygen saturation 96% on room air; blood pressure 103/67. HEENT: Head normocephalic. Pupils are equal and reactive, anicteric. Oropharynx; mucous membranes moist. NECK: Supple. No lymphadenopathy. RESPIRATORY: Diminished breath sounds. No wheezing, rhonchi, or rales. No increased workup breathing. CARDIAC: Tachycardia, irregularly irregular rate with a harsh blowing murmur heard throughout. ABDOMEN: Positive bowel sounds. Morbidly obese. Soft, nontender, and nondistended. EXTREMITIES: No clubbing, cyanosis, or edema. +1 DP. DERM: He has chronic healing lower extremity wounds on the anterior legs bilaterally. Chronic hemosiderin changes. ASSESSMENT: This is a 74-year-old male with a past medical history of chronic atrial fibrillation, on anticoagulation, question of diastolic dysfunction, who presented to the emergency room after having abnormal labs drawn at the primary care physician's office. 1. Acute kidney injury. The patient's labs show acute kidney injury. His last creatinine was 1.13 on 03/17/19. He also has metabolic anion gap acidosis secondary to his renal failure. He also has mild hyperkalemia with peak T- waves. He is urinating. I suspect this is all from prerenal azotemia in the setting of torsemide. He is also taking lisinopril as well. His LFTs are slightly elevated as well which could be a component of being over diuresed as well and being on a statin. Plan: The patient is getting a liter of fluid down in the emergency room. We will start him on LR 125 an hour. Repeat his BMP this evening to show improvement. I am going to order a renal bladder ultrasound to make sure there is no postobstructive failure contributing to this. We will continue with bladder scan. In the setting of his peaked T-waves, I am going to give him calcium gluconate, insulin and dextrose, and we will clearly hold his torsemide and lisinopril, renally dose his meds, and followup his labs in the morning. Consider Nephrology consultation in the morning. 2. Chronic medical problems: a. Atrial fibrillation, on anticoagulation. The patient in the setting of his renal failure is not a candidate for Pradaxa. At this time, we will hold it. We will start him on heparin subcu t.i.d. and if his renal function improves, they can resume Pradaxa. Otherwise, he may need to be transitioned over to Coumadin. We will continue him on his metoprolol 100 mg daily. His rate is relatively rate controlled in the 90s. I suspect this is from being volume depleted and will improve once he is rehydrated. b. Hyperlipidemia. Hold his simvastatin in the setting of his elevated LFTs, repeat his labs in the morning. c. Hypertension. As mentioned, holding his lisinopril. 3. FEN. Renal diet, IV fluids. 4. DVT prophylaxis. The patient scores high risk. We will start him on heparin in the morning in the setting of holding his Pradaxa. 5. Code status. Full code. PATIENT TIME: Greater than 50 minutes was spent doing the history and physical , more than half the time spent in direct patient contact. [id number]/CPS #: [id number] AMANDA
[2019-04-09] MEDS: Lactated Ringers 1000 ML Bag* 1,000 ML IV SCH ×3 (00:35→20:45)
[2019-04-09 01:07] LABS: BUN/Creatinine Ratio 41.8 (8-20); Calcium 9.4 mg/dL (8.6-10.3); EGFR African American 26.9 (>60); EGFR Non-African American 22.2 (>60)
[2019-04-09 01:08] LABS: Potassium 5.5 mmol/L (3.5-5.0)
[2019-04-09] MEDS ORDERED: Heparin VIAL(*) 5000 UNITS/ML VIAL (FIVE THOUSAND) SUBCUT SCH (06:00)
[2019-04-09 06:40] LABS: Hematocrit 37 % (42-52); Hemoglobin 11.4 g/dL (14.0-18.0); Mean Corpuscular HGB Conc 31 g/dL (31-36); Mean Corpuscular Hemoglobin 23 pg (27-31); Mean Corpuscular Volume 72 fL (80-94); Mean Platelet Volume 7.9 fL (7.4-10.4); Platelet Count 357 10^3/uL (150-450); Red Blood Count 5.07 10^6 /uL (4.18-5.48); Red Cell Distribution Width 20 % (10-15); White Blood Count 11.5 10^3/uL (3.5-10.8)
[2019-04-09 06:43] LABS: INR 1.33 (0.82-1.09)
[2019-04-09 06:57] LABS: Albumin 3.8 g/dL (3.2-5.2); Albumin/Globulin Ratio 1.2 (1-3); BUN/Creatinine Ratio 43.5 (8-20); Calcium 9.3 mg/dL (8.6-10.3); EGFR African American 31.2 (>60); EGFR Non-African American 25.8 (>60); Globulin 3.3 g/dL (2-4); Magnesium 2.6 mg/dL (1.9-2.7); Total Bilirubin 0.4 mg/dL (0.2-1.0); Total Protein 7.1 g/dL (6.4-8.9)
[2019-04-09 06:58] LABS: Potassium 5.6 mmol/L (3.5-5.0)
[2019-04-09 07:48] LABS: ABS Basophils 0.1 10^3/ul (0-0.2); ABS Eosinophils 0.4 10^3/ul (0-0.6); ABS Lymphocytes 1.9 10^3/ul (1.0-4.8); ABS Monocytes 0.8 10^3/ul (0-0.8); ABS Neutrophils 8.3 10^3/ul (1.5-7.7); Eosinophil % 3.8 %; Lymphocyte % 16.2 %
[2019-04-09] MEDS: Metoprolol Succinate XL TAB* 100 MG PO SCH (08:53)
[2019-04-09] MEDS: Digoxin TAB* 0.125 MG PO SCH (08:53)
--- NOTE | 2019-04-09 12:37 | PN ---
Subjective Date of Service: 04/09/19 Interval History: HOSPITALIST PROGRESS NOTE Patient seen and examined at bedside. Care reviewed and d/w Jessica Champagne RN. He feels better today. Denies dizziness, lightheadedness, CP, palpitations. Able to void spontaneously and not aware he's retaining urine. Family History: Unchanged from Admission Social History: Unchanged from Admission Past Medical History: Unchanged from Admission Objective Active Medications: Acetaminophen (Tylenol Tab*) 650 mg PO Q4H PRN PRN Reason: FEVER/PAIN Al Hydrox/Mg Hydrox/Simethicone (Maalox Plus*) 30 ml PO Q6H PRN PRN Reason: INDIGESTION Digoxin (Lanoxin Tab*) 0.125 mg PO DAILY [facility] Last Admin: 04/09/19 08:53 Dose: 0.125 mg Heparin Sodium (Porcine) (Heparin Vial(*)) 5,000 units SUBCUT Q8HR [facility] Last Admin: 04/09/19 05:56 Dose: 5,000 units Lactated Ringer's (Lactated Ringers 1000 Ml Bag*) 1,000 mls @ 125 mls/hr IV PER RATE [facility] Last Admin: 04/09/19 00:35 Dose: 125 mls/hr Metoprolol Succinate (Toprol Xl Tab*) 100 mg PO DAILY [facility] Last Admin: 04/09/19 08:53 Dose: 100 mg Ondansetron HCl (Zofran Inj*) 4 mg IV Q4H PRN PRN Reason: NAUSEA/VOMITING Patiromer (Veltassa Powder*) 8.4 gm PO DAILY [facility] Vital Signs - 8 hr 04/09/19 04/09/19 04/09/19 07:33 08:00 08:53 Temperature 99 F Pulse Rate 112 112 Respiratory 20 18 Rate Blood Pressure 111/59 (mmHg) O2 Sat by Pulse 96 Oximetry Oxygen Devices in Use Now: None Appearance: Pleasant gentleman sitting up in bed in NAD. Eyes: No Scleral Icterus Ears/Nose/Mouth/Throat: Mucous Membranes Moist Neck: Trachea Midline Respiratory: Symmetrical Chest Expansion and Respiratory Effort, Clear to Auscultation Cardiovascular: - - Normal S1 and S2, irregularly irregular Abdominal: NL Sounds; No Tenderness; No Distention Extremities: No Edema Skin: - - Dry scabs on bilateral LE Neurological: Alert and Oriented x 3, NL Muscle Strength and Tone Result Diagrams: 04/09/19 05:55 04/09/19 05:55 Assess/Plan/Problems-Billing Assessment: Mr Valerio is a 74yo M with PMH of Afib on AC, diastolic CHF EF 55-60%, obesity with BMI 35, HLD, severe pulmonary HTN, SONJA; who presented to ED with c/o hypotension and abnormal labs, found to have TEJINDER. - Patient Problems (1) TEJINDER (acute kidney injury) Comment: - Suspect pre-renal in the setting of diuretic use. - Improving with IVF - monitor fluid status. - Renal US showed no obstruction and bilateral ureteral jets present. (2) Hyperkalemia Comment: - Mild, but trending up. - No EKG changes. - Patiromer x 1 dose and monitor. (3) Urinary retention Comment: - Patient unaware and asymptomatic. - Will continue to monitor PVR, but if retention is persistent, will contact Urology. (4) A-fib Comment: - Rate is controlled - continue Digoxin and Metoprolol. - Digoxin level 0.6. - Off Pradaxa for now as GFR still <30 - continue to monitor. - XBSIJ5Daso is 3 - will treat with Lovenox for now and resume Pradaxa when renal function allows. (5) (HFpEF) heart failure with preserved ejection fraction Comment: - Compensated at this time. - Off diuretics for now. (6) Pulmonary HTN Comment: - With nocturnal hypoxia - being w/u for JAE as outpatient. (7) Transaminitis Comment: - May be secondary to statin. - Check hepatitis serologies. (8) DVT prophylaxis Comment: - Lovenox. (9) Full code status Status and Disposition: Inpatient. Anticipate d/c in 48h if renal function continues to improve.
[2019-04-09] MEDS: Patiromer POWDER* 8.4 GM PAK PO SCH (12:40)
[2019-04-09 13:57] LABS: Hepatitis B Surface Antigen Negative (Negative)
[2019-04-09 14:14] LABS: Hepatitis C Antibody Negative (Negative)
[2019-04-09] MEDS: Enoxaparin(*) 150 MG/ML 1 ML SYRINGE SUBCUT SCH (14:45)
[2019-04-09 20:59] LABS: Calcium 9.8 mg/dL (8.6-10.3); EGFR African American 44.4 (>60); EGFR Non-African American 36.7 (>60)
[2019-04-09 21:07] LABS: Potassium 5.4 mmol/L (3.5-5.0)
[2019-04-10] MEDS: Enoxaparin(*) 150 MG/ML 1 ML SYRINGE SUBCUT SCH (01:26)
[2019-04-10] MEDS: Lactated Ringers 1000 ML Bag* 1,000 ML IV SCH (04:00)
[2019-04-10 07:50] VITALS: BP 119/59
[2019-04-10] MEDS: Digoxin TAB* 0.125 MG PO SCH (09:15)
[2019-04-10] MEDS: Metoprolol Succinate XL TAB* 100 MG PO SCH (09:15)
[2019-04-10] MEDS: Patiromer POWDER* 8.4 GM PAK PO SCH (09:18)
[2019-04-10 09:48] LABS: BUN/Creatinine Ratio 39.6 (8-20); Calcium 9.7 mg/dL (8.6-10.3); EGFR African American 60.3 (>60); EGFR Non-African American 49.8 (>60); Potassium 4.9 mmol/L (3.5-5.0)
[2019-04-10] MEDS ORDERED: CMC:Dabigatran CAP(NF) 150 MG CAP PO SCH (13:00)
[2019-04-10] MEDS ORDERED: Patiromer POWDER* 8.4 GM PAK PO SCH (16:00)
--- NOTE | 2019-04-10 19:40 | DS ---
CC: Dr. Randy Orosco; Dr. Wilver Steen at [facility] * DISCHARGE SUMMARY: DATE OF ADMISSION: 04/08/19 DATE OF DISCHARGE: 04/10/19 PRIMARY CARE PROVIDER: Dr. Randy Orosco. RESTAURANT LINE COOK: Dr. Wilver Steen at [facility]. Phone number is [phone] DISCHARGE DIAGNOSES: 1. Acute kidney injury, likely prerenal in the setting of diuretic use. 2. Hyperkalemia, secondary to the above and LARISSA inhibitor. 3. Episode of urinary retention. 4. Transaminitis, likely secondary to statin. 5. Hyperglycemia. SECONDARY DIAGNOSES: 1. Chronic atrial fibrillation, on anticoagulation. 2. Heart failure with preserved ejection fraction. 3. Obesity with a BMI of 35. 4. Nocturnal dyspnea, with probable obstructive sleep apnea. 5. Iron-deficiency anemia. 6. Hyperlipidemia. 7. Severe pulmonary hypertension. MEDICATION LIST: 1. Cholecalciferol 1000 units p.o. daily. 2. Digoxin 0.125 mg p.o. daily. 3. Metoprolol succinate 100 mg p.o. daily. 4. Rivaroxaban 20 mg p.o. daily. 5. Simvastatin 40 mg p.o. daily. MEDICATION CHANGE: 1. Torsemide was discontinued. In its place, the patient was started on furosemide 20 mg p.o. on Mondays, Wednesdays, and Fridays. 2. Lisinopril was held for now; but if his renal function and hyperkalemia continue to improve, it can probably be resumed next week. HOSPITAL COURSE: Mr. Valerio is a 74 years old male with a past medical history as stated above that was admitted to [facility] from 03/15/19 to 03/17/19 for episode of presumed diastolic heart failure and he was discharged home on torsemide. He states that he continued to take diuretic and he had lost about 30 pounds since that admission. He went to see his primary care provider as an outpatient and he was complaining of fatigue, and laboratory tests were performed and he was found to be in acute kidney injury and referred to the emergency room for further evaluation. For details about his presentation, I refer to his history and physical dictated by Dr. Yazmin Byrd. On admission, the patient was found to have a creatinine of 3.3 from a baseline of 1.1., 1.2. He was also hyperkalemic with a highest potassium of 5.6. An abdomen and bladder ultrasound was performed and it showed sonographically normal kidneys and bladder with a prevoid volume of 171, postvoid volume of 41, and bilateral ureteral jets were identified. His prostate was normal in size, measuring 11 cc. The patient responded well to IV hydration and his creatinine trended down to 1.39 on the day of discharge. His lisinopril was held on admission and his potassium also responded to treatment with patiromer and is down to 4.9 on the day of discharge. He did have some episodes of urinary retention while in the hospital with a postvoid residual greater than 200 but this has also resolved and it was checked multiple times and the volume has been below 100 mL. The impression is that his acute kidney injury was prerenal in the setting of diuretic use. The plan now is for him to be on furosemide 20 mg 3 times a week and he was advised to monitor his weight; and if he gains more than 3 pounds, he should contact his primary care provider to have his diuretic dose adjusted. He receives a request to have a BMP done on 04/14/19 and the results will be sent to Dr. Orosco. If his renal function and potassium remain at his baseline , his lisinopril would likely be able to be resumed. Also of note, is the fact that the patient had 1 random glucose level greater than 200. This was not a fasting study. Hemoglobin A1c was checked, but it is pending at the time of this dictation, so the results need to be followed. The patient was educated about glucose intolerance and dietary changes. On the same talking, I believe the patient probably has pre-metabolic syndrome. He was found to have mild LFT elevation with an AST of 67, ALT of 83. This may be secondary to simvastatin use or may represent a fatty liver. Hepatitis serologies were negative and his LFTs should be monitored as outpatient. Regarding his pulmonary hypertension and nocturnal hypoxia, the patient was seen by Dr. Guerrero as outpatient and he states that he had his sleep study as outpatient, he is just waiting for the result. He was encouraged to keep his followup appointment with Dr. Guerrero as already scheduled. The patient is medically stable for discharge today, to follow up with Dr. Orosco next week. He was educated about signs and symptoms that would prompt his return to the emergency room for further evaluation. PHYSICAL EXAMINATION: Vital Signs: Temperature 98.1, heart rate is 71, respiratory rate 16, oxygen saturation 97% on room air, blood pressure is 119/ 59. General: The patient is a pleasant obese gentleman, sitting up in bed, in no acute distress. CVS: Normal S1, S2. Irregularly irregular. Chest: Breath sounds bilaterally with no added sounds. Abdomen is obese. Bowel sounds are present. Extremities: There is trace bilateral lower extremity edema. Neuro: He is alert and oriented x3. Face is symmetric. He is able to move all 4 extremities with strength 5/5 in all 4. DIET: Heart-healthy diet. ACTIVITIES: As tolerated. DISPOSITION: To home. STATUS WHILE IN THE HOSPITAL: Inpatient. CONDITION AT THE TIME OF DISCHARGE: Fair. Please keep in mind that on admission, the patient was taking Pradaxa but e- reviewing his records, his brewing director had changed his Pradaxa to Xarelto due to high co-pay. The patient called his brewing director's office and was able to clarify that he is now supposed to be taking Xarelto 20 mg a day and the Pradaxa has been discontinued. Please keep in mind this is a summarized version of this patient's hospital stay. If you need more information, please feel free to call me at [phone] or please obtain the full medical records. TIME SPENT: Approximately 45 minutes was spent to complete this discharge. [id number]/CPS #: [id number] AMANDA
== END 2019-04-10 12:38 | disposition home or self-care (01) | DRG 683 ==
LOC: ED 19:43 → MEDTELE 21:53
PROVIDERS: ADMIT Pediatrics; ATTEND Internal Medicine
DX: N17.9 Acute kidney failure, unspecified (principal); I50.32 Chronic diastolic (congestive) heart failure; I11.0 Hypertensive heart disease with heart failure; I48.2 Chronic atrial fibrillation; E66.9 Obesity, unspecified; E78.5 Hyperlipidemia, unspecified; I27.20 Pulmonary hypertension, unspecified; E87.5 Hyperkalemia; T50.1X5A Adverse effect of loop [high-ceiling] diuretics, initial encounter; G47.33 Obstructive sleep apnea (adult) (pediatric); R33.9 Retention of urine, unspecified; T46.6X5A Adverse effect of antihyperlipidemic and antiarteriosclerotic drugs, initial encounter; R09.02 Hypoxemia; R74.0 Nonspecific elevation of levels of transaminase and lactic acid dehydrogenase [LDH]; Z87.891 Personal history of nicotine dependence; Z68.35 Body mass index [BMI] 35.0-35.9, adult; Y92.9 Unspecified place or not applicable; Z79.01 Long term (current) use of anticoagulants
CPT/HCPCS: 36415; 71045; 76770; 80048; 80053; 80074; 80162; 82272; 82550; 83036; 83735; 83880; 84100; 84443; 85025; 85610; 85730; 93005; 99284; A9270-GY; J0610; J1160; J1644; J1650; J3490

== ENCOUNTER 2019-04-30 13:23 | Emergency (ER) | payer MEDICARE, OTHER ==
[2019-04-30] MEDS ORDERED: NS 0.9% 1000 ML** 1,000 ML IV ONE (13:51)
--- NOTE | 2019-04-30 13:59 | ED ---
Complex/Multi-Sys Presentation - HPI Summary HPI Summary: This patient is a 74 year old M presenting to [facility] with a chief complaint of low blood pressure since 13:28. He reports he went to have a colonoscopy, however he was told he was hypotensive and had fast heart rate, then sent to the ED. Pts normal BP is around 112/75. Pt denies SOB, and is currently feeling fine. Pt has a PMHx of A Fib. Pt takes Xarelto. - History Of Current Complaint Chief Complaint: EDGeneral Time Seen by Provider: 04/30/19 13:48 Hx Obtained From: Patient Onset/Duration: Lasting Minutes, Resolved Timing: Minutes Severity Currently: None Associated Signs And Symptoms: Negative: SOB - Allergies/Home Medications Allergies/Adverse Reactions: Allergies Allergy/AdvReac Type Severity Reaction Status Date / Time No Known Allergies Allergy Verified 04/08/19 19:54 Home Medications: Home Medications Dabigatran CAP(NF) [Pradaxa CAP(NF)] 150 mg PO BID 04/30/19 [History Confirmed 04/30/19] Furosemide TAB* [Lasix TAB*] 20 mg PO MOWEFR 04/30/19 [History Confirmed ] PMH/Surg Hx/FS Hx/Imm Hx Endocrine/Hematology History: Reports: Hx Anticoagulant Therapy Denies: Hx Diabetes Comment Only: Other Endocrine/Hematological Disorders - Anemia Cardiovascular History: Reports: Hx Atrial Fibrillation, Hx Congestive Heart Failure, Hx Hypertension, Hx Peripheral Vascular Disease Denies: Hx Cardiac Arrest Respiratory History: Reports: Other Respiratory Problems/Disorders - Pulmonaru HTN Denies: Hx Asthma, Hx Chronic Obstructive Pulmonary Disease (COPD) History: Reports: Hx Acute Renal Failure Sensory History: Reports: Hx Contacts or Glasses Denies: Hx Glaucoma, Hx Legally Blind, Hx Vision Problem, Hx Deafness, Hx Hearing Aid, Hx Hearing Problem, Other Sensory Impairments Opthamlomology History: Reports: Hx Contacts or Glasses Denies: Hx Glaucoma, Hx Legally Blind, Hx Vision Problem, Other Sensory Impairments Neurological History: Denies: Hx Dementia, Hx Headaches, Hx Nerve Disease, Hx Seizures, Hx Transient Ischemic Attacks (TIA) - Surgical History Surgery Procedure, Year, and Place: APPENDECTOMY CHILD Infectious Disease History: No Infectious Disease History: Denies: Hx Clostridium Difficile, Hx Hepatitis, Hx of Known/Suspected MRSA, Hx Shingles, Hx Tuberculosis, Hx Known/Suspected VRE, Hx Known/Suspected VRSA, History Other Infectious Disease, Traveled Outside the [place] in Last 30 Days - Family History Known Family History: Positive: Cardiac Disease, Diabetes - Social History Alcohol Use: None Hx Substance Use: Yes Substance Use Type: Reports: Marijuana Hx Tobacco Use: Yes Smoking Status (MU): Former Smoker Review of Systems Negative: Fever Negative: Shortness Of Breath All Other Systems Reviewed And Are Negative: Yes Physical Exam - Summary Physical Exam Summary: VITAL SIGNS: Reviewed. GENERAL: Patient is a well-developed and nourished male who is lying comfortable in the stretcher. Patient is not in any acute respiratory distress. HEAD AND FACE: No signs of trauma. No ecchymosis, hematomas or skull depressions. No sinus tenderness. EYES: PERRLA, EOMI x 2, No injected conjunctiva, no nystagmus. EARS: Hearing grossly intact. Ear canals and tympanic membranes are within normal limits. MOUTH: Oropharynx within normal limits. NECK: Supple, trachea is midline, no adenopathy, no JVD, no carotid bruit, no c- spine tenderness, neck with full ROM. CHEST: Symmetric, no tenderness at palpation. Irregular rate and rhythm, heart murmur. LUNGS: Clear to auscultation bilaterally. No wheezing or crackles. CVS: Regular rate and rhythm, S1 and S2 present, no murmurs or gallops appreciated. ABDOMEN: Soft, non-tender. No signs of distention. No rebound no guarding, and no masses palpated. Bowel sounds are normal. EXTREMITIES: FROM in all major joints, no edema, no cyanosis or clubbing. NEURO: Alert and oriented x 3. No acute neurological deficits. Speech is normal and follows commands. SKIN: Dry and warm Triage Information Reviewed: Yes Vital Signs On Initial Exam: Initial Vitals Temp Pulse Resp BP Pulse Ox 98.5 F 74 16 124/58 97 04/30/19 13:26 04/30/19 13:26 04/30/19 13:26 04/30/19 13:26 04/30/19 13:26 Vital Signs Reviewed: Yes Diagnostics - Vital Signs Vital Signs Temp Pulse Resp BP Pulse Ox 04/30/19 13:26 98.5 F 74 16 124/58 97 - Laboratory Result Diagrams: 04/30/19 14:05 04/30/19 14:05 Lab Statement: Any lab studies that have been ordered have been reviewed, and results considered in the medical decision making process. - Radiology CXR Radiology Interpretation Completed By: Radiologist Summary of Radiographic Findings: CXR reveals, per radiologist, IMPRESSION: NO EVIDENCE FOR ACTIVE CARDIOPULMONARY DISEASE. ED physician has reviewed this radiology report. - EKG 1405 EKG Rhythm: Atrial Fibrillation EKG Comparison: No Significant Change - 04/08/19 Summary of EKG Findings: EKG reveals, atrial fibrillation 61 bpm, no significant change from 04/08/19. Re-Evaluation - Re-Evaluation First Eval Re-Evaluation Time: 15:25 Comment: Discussed results and plan of care with pt. Lung exam before discharge : CTA B/L. Good air exchange. No wheezing or crackles heard. CVS: S1 and S2 present. No murmurs appreciated. Patient is alert and oriented x 3. Patient is hemodynamically stable. Complex Multi-Symp Course/Dx Assessment/Plan: This patient is a 74 year old M presenting to [facility] with a chief complaint of low blood pressure at 13:28, per triage. He reports he went to have a colonoscopy, however he was told he was hypotensive and had fast heart rate, then sent to the ED. Pts normal BP is around 112/75. Pt denies SOB , and is currently feeling fine. Pt has a PMHx of A Fib. Pt takes Xarelto. Blood work without any significant abnormality except for WBCs of 13.2, hemoglobin is 10.7, hematocrit is 34 which is his baseline since March. Platelet count is 192. CMP were normal limits except for sodium of 133, chloride 98, creatinine 1.28, glucose 101, alkaline phosphatase 196 and BNP 858. EKG shows and atrial fibrillation with a rate control. Chest x-ray impression: No evidence for active cardiopulmonary disease. In the ED course the patient continues to be asymptomatic, he is normotensive, he is not hypoxic. Since the patient doesnt have any complaints and all the test results are within normal limits the patient will be discharged home with follow -up with PCP. I discussed all the findings and test results with the patient. Patient was instructed to return to the emergency room immediately if any of the symptoms return worsens. Plan of care was discussed with the patient and understands and agrees. All questions were answered at patient satisfaction. There were no further complaints or concerns. Lung exam before discharge: CTA B/ L. Good air exchange. No wheezing or crackles heard. CVS: S1 and S2 present. No murmurs appreciated. Patient is alert and oriented x 3. Patient is hemodynamically stable. Patient will be discharged home with follow up PCP in the next 2-3 days - Diagnoses Provider Diagnoses: Dyspnea, Hypotensive episode Discharge - Sign-Out/Discharge Documenting (check all that apply): Patient Departure - Discharge Patient Received Moderate/Deep Sedation with Procedure: No - Discharge Plan Condition: Stable Disposition: HOME Patient Education Materials: Dyspnea (ED), Syncope in Older Adults (ED) Referrals: Randy Orosco DO [Primary Care Provider] - 3 Days Additional Instructions: Follow up with your primary care provider within three days RETURN TO THE ED FOR ANY WORSENING OR NEW SYMPTOMS. - Billing Disposition and Condition Condition: STABLE Disposition: Home - Attestation Statements Document Initiated by Scribe: Yes Documenting Scribe: Adelina Dickens Provider For Whom Jose Rafaele is Documenting (Include Credential): Dr. Aubrey Carpenter MD Scribe Attestation: Adelina Garcia scribed for Dr. Aubrey Carpenter MD on 04/30/19 at 2150. Scribe Documentation Reviewed: Yes Provider Attestation: The documentation as recorded by the Adelina rojas accurately reflects the service I personally performed and the decisions made by , Dr. Aubrey Carpenter MD Status of Scribe Document: Viewed
[2019-04-30 14:13] LABS: Hematocrit 34 % (42-52); Hemoglobin 10.7 g/dL (14.0-18.0); Mean Corpuscular HGB Conc 32 g/dL (31-36); Mean Corpuscular Hemoglobin 23 pg (27-31); Mean Corpuscular Volume 73 fL (80-94); Mean Platelet Volume 6.5 fL (7.4-10.4); Platelet Count 592 10^3/uL (150-450); Red Blood Count 4.71 10^6 /uL (4.18-5.48); Red Cell Distribution Width 22 % (10-15); White Blood Count 13.2 10^3/uL (3.5-10.8)
[2019-04-30 14:20] LABS: Activated Partial Thrombo Time 36.5 seconds (26.0-38.0); INR 1.16 (0.82-1.09)
[2019-04-30 14:29] LABS: Albumin 3.6 g/dL (3.2-5.2); C Reactive Protein 7.06 mg/L (<8.01); Calcium 9.8 mg/dL (8.6-10.3); EGFR African American 66.3 (>60); EGFR Non-African American 54.8 (>60); Globulin 3.7 g/dL (2-4); Potassium 4.3 mmol/L (3.5-5.0); Total Bilirubin 0.6 mg/dL (0.2-1.0); Total Protein 7.3 g/dL (6.4-8.9)
[2019-04-30 14:31] LABS: Troponin I 0.03 ng/mL (<0.04)
[2019-04-30 14:34] LABS: CKMB ng/mL 4.2 ng/mL (0.6-6.3)
--- NOTE | 2019-04-30 15:08 | PN ---
Progress Note - Progress Note Date of Service: 04/30/19 Note: BRIEF GI NOTE Patient present to endo unit for EGD/colonoscopy for SONJA evaluation. Noted to have low systolic BP (89-92) and Afib with HR ranging from 60's-140's. Patient asymptomatic. Reports recent hospitalization for CHF. Also has noticed several days of hematuria. Will send to ED for A fib with RVR and borderline hypotension. Will defer endoscopic work-up for now given clinical change. Jodie Monte MD Gastroenterology
[2019-04-30 15:26] VITALS: BP 126/64
[2019-04-30 15:34] LABS: Polychromasia 1+
[2019-04-30 15:35] LABS: ABS Basophils 0.2 10^3/ul (0-0.2); ABS Eosinophils 0.1 10^3/ul (0-0.6); ABS Lymphocytes 1.7 10^3/ul (1.0-4.8); ABS Monocytes 0.8 10^3/ul (0-0.8); ABS Neutrophils 10.5 10^3/ul (1.5-7.7); Eosinophil % 0.8 %; Microcytosis 1+; Nucleated Red Blood Cells % 0.1
== END 2019-04-30 15:25 | disposition home or self-care (01) ==
LOC: ED 13:23
DX: R06.00 Dyspnea, unspecified (principal); I95.9 Hypotension, unspecified; Z87.891 Personal history of nicotine dependence; Z79.899 Other long term (current) drug therapy
CPT/HCPCS: 36415; 71046; 80053; 82550; 82553; 83605; 83880; 84484; 85025; 85060; 85610; 85730; 86140; 93005; 96360; 99283